=== PATIENT | male | born 1965 | race Caucasian/White ===

== ENCOUNTER 2024-05-18 09:00 | Inpatient (IN) | payer MEDICAID, SELFPAY ==
[2024-05-18] VITALS (49 sets, daily range): BP systolic 149–250; BP diastolic 85–146; PULSE 70–132; RESP 12–23; TEMP 37.2–37.7; O2SAT 77–100
--- NOTE | 2024-05-18 09:00 | RT.EKG_ITS ---
APPROVED REPORT Exam: Resting ECG Reason for Exam: Detox Patient Location: E HR:124 bpm ECG Measurements Heart Rate 124 AXIS MA 136 P 35 QRSd 84 QRS -41 QT 317 T 3 QTc 456 Conclusion Sinus tachycardia...rate> 99 Probable left atrial enlargement...P >50mS, <-0.10mV V1 Inferior infarct, old...Q >35mS, II III aVF Sinus tachycardia left axis normal intervals no acute ischemic changes
--- NOTE | 2024-05-18 09:28 | ED.GENADUL_ITS ---
Discharge Plan Disposition Patient Disposition: Admit to [facility] Condition: Stable Discharge Details Chief Complaint: ETOHWithdr Clinical Impression: Alcohol withdrawal syndrome Primary Care Provider: Unknown,Unknown ED Provider: Cullen Weiss Home Meds and New Rx's Prescriptions: No Action hydrochlorothiazide 12.5 mg capsule 12.5 mg PO DAILY Patient Comments: TAKE 1 CAPSULE BY MOUTH ONCE DAILY metoprolol tartrate 25 mg tablet 12.5 mg PO DAILY Patient Comments: TAKE ONE-HALF TABLET BY MOUTH TWICE DAILY HPI General Date/Time Provider Initiated Documentation: 05/18/24 09:09 . HPI Narrative: 58-year-old male history of alcohol abuse last drink yesterday presents in alcohol withdrawal presenting with tremors and sweating nervousness requesting detox. Brought in by friend Les. Patient endorses a mechanical trip and fall yesterday when he was drinking fell and hit his head no loss of consciousness. Sustained abrasion to right frontal scalp. Endorses history of prior alcohol withdrawal seizures Related Data Home Medications ?Medication ?Instructions ?Recorded ?Confirmed hydrochlorothiazide 12.5 mg capsule 12.5 mg PO DAILY 05/18/24 05/18/24 metoprolol tartrate 25 mg tablet 12.5 mg PO DAILY 05/18/24 05/18/24 Allergies Allergy/AdvReac Type Severity Reaction Status Date / Time No Known Allergies Allergy Unverified 05/18/24 09:08 General Stated Complaint: ETOHWithdr ÁNGELA: 2 Exam Narrative Exam Narrative: Alert oriented uncomfortable appearing Diaphoretic skin Subacute appearing abrasion to frontal scalp, subconjunctival hematoma right eye extraocular motion intact pupils round reactive equal to light, no proptosis Dry oromucosa dry lips Speaking full sentences Tachycardia, regular rate no murmurs rubs or gallops Lungs clear bilaterally no wheezes rales or rhonchi Abdomen soft nontender nondistended Pelvis stable moving all extremities without deficit Alert to self place and time, cranial nerves II through XII intact 5-5 strength upper and lower extremities bilaterally, no ataxia, resting tremor of hands some tongue fasciculation Calm cooperative interactive Course Vital Signs Vital signs: Vital Signs Temperature 37.2 C 05/18/24 09:04 Pulse 129 H 05/18/24 09:04 Respiratory Rate 22 05/18/24 09:04 Blood Pressure 185/146 H 05/18/24 09:04 Pulse Oximetry 95 05/18/24 09:04 Temperature 37.2 C 05/18/24 09:04 Temperature Source Oral 05/18/24 09:04 Pulse 129 H 05/18/24 09:04 Respiratory Rate 22 05/18/24 09:04 Blood Pressure 185/146 H 05/18/24 09:04 Pulse Oximetry 95 05/18/24 09:04 Oxygen Delivery Method Room Air 05/18/24 09:04 Oxygen Flow Rate 0 05/18/24 09:04 Medical Decision Making 58-year-old male presents in alcohol withdrawal last drink yesterday, no to be tachycardic and hypertensive, diaphoretic with dry oromucosa, tremor at rest with tongue fasciculation, CIWA score approximately 15. Subacute appearing abrasion to frontal scalp and subconjunctival hemorrhage of right eye with normal pupillary examination no proptosis normal extraocular motion, cranial nerves intact alert oriented speaking full sentences, likely alcohol withdrawal lower suspicion for intracranial hemorrhage must also consider electrolyte derangement versus dehydration lower suspicion for infectious process such as pneumonia bacteremia UTI or intracranial process such as encephalitis or encephalopathy patient is nonmeningeal, no midline spinal tenderness step-off crepitus or deformity, will obtain basic labs IV access will initiate on phenobarbital protocol ideal body weight calculated at 160 pounds or approximately 72 kg, have initiated institutional protocol corresponding to CIWA 15. Patient will need ICU level admission. Will obtain CT head given recent trauma 11: 34 subjective improvement of symptomatology less anxious less tremulous, however patient does remain tachycardic and hypertensive. Consider increasing phenobarbital dose from recommended ideal body weight dose regimen. Discussed case with hospitalist Dr. Sánchez who will discuss increasing phenobarb dose with pharmacy. I have placed the third phenobarbital loading dose order in which will be administered at 345. Patient will receive his second dose at 1245. Quality:SDOH Health Related Social Needs: No Data to Display PFSH All Active Problems (Updated 05/18/24 @ 11:36 by Cullen Weiss MD) Alcohol withdrawal syndrome (Acute) Social History Smoking/Tobacco Use Status: Current every day Smoking risk assessment performed?: Yes Alcohol Intake: current Alcohol Intake frequency: 3 or more drinks per day Drug use: Never Substance use type: does not use
--- NOTE | 2024-05-18 09:30 | DI.CT_ITS ---
Exam(s) CT HEAD WO EXAM: CT HEAD WO CLINICAL HISTORY: fall from standing, frontal right scalp abrasion. TECHNIQUE: Imaging Protocol: Axial computed tomography images with coronal and sagittal reformatted images were created and reviewed COMPARISON: No exams were available for comparison FINDINGS: There are no skull fractures. There is no fluid in the visualized paranasal sinuses. There is no evidence of intracranial hemorrhage, mass effect, or shift of midline structures. There are no extra-axial fluid collections. The ventricles are not enlarged or shifted and there is no blo od within the ventricular system nor within the basal cisterns. IMPRESSION: No acute intracranial findings on this noninfused CT scan of the brain. Called by myself to ER on 05/18/2024 at 10:24 a.m. RADIATION DOSE DELIVERED: 939.7mGy.cm Total DLP DATA REPOSITORY: All CT scans at this facility are submitted to the National Radiology Data Registry (NRDR) Dose Index Registry (DIR) with the [employer] (A[employer]). RADIATION OPTIMIZATION: All CT scans at this facility use at least one of these dose optimization te chniques: automated exposure control; mA and/or kV adjustment per patient size (includes targeted exa ms where dose is matched to clinical indication); or iterative reconstruction.
[2024-05-18] MEDS: Normal Saline 1,000 ML 1000 ML IV (09:45)
[2024-05-18 09:46] LABS: Abs Immature Grans 0.05 10^3/uL (0.0-0.06); Absolute Basophil Count 0.07 10^3/uL (0.0-0.2); Absolute Lymphocyte Count 0.64 10^3/uL (1.2-3.4); Absolute Monocyte Count 0.74 10^3/uL (0.1-0.8); Absolute Neutrophil Count 6.17 10^3/uL (1.2-6.7); Basophils % 0.9 %; HCT 43.5 % (40.0-50.0); HGB 14.8 g/dL (13.5-17.5); Immature Grans % 0.7 %; Lymphocytes % 8.3 %; MCV 94 fL (80-95); MPV 9.6 fL (8.0-11.0); Monocytes % 9.6 %; Neutrophils % 80.5 %; Platelet Count 137 10^3/uL (130-400); RBC 4.62 10^6/uL (4.36-5.78); RDW 15.8 % (11.8-14.1); RDW-SD 54.3 fL; WBC 7.67 10^3/uL (4.4-10.8)
[2024-05-18 10:17] LABS: TSH (W/Ref FT4) 3.42 uIU/mL (0.36-3.74)
[2024-05-18 10:23] LABS: ALT 56 U/L (16-63); AST 102 U/L (15-37); Albumin 3.6 g/dL (3.4-5.0); Alkaline Phosphatase 85 U/L (46-116); Anion Gap 21.8 mmol/L (3-11); BUN 24 mg/dL (7-18); Bilirubin, Total 0.66 mg/dL (0.2-1.0); CO2 20.2 mmol/L (21.0-32.0); CREATININE 1.4 mg/dL (0.70-1.30); Calcium 8.8 mg/dL (8.5-10.1); Chloride 102 mmol/L (98-107); ETHANOL BLOOD 16.6 mg/dL (<10); Estimated GFR 58.99 (mL/min/1.73m2); Glucose 166 mg/dL (74-106); Lipase 52 U/L (16-77); Magnesium 1.6 mg/dL (1.8-2.4); Sodium 144 mmol/L (136-145)
[2024-05-18] MEDS: MAGNESIUM SULFATE 8.12 MEQ, MULTIVITAMIN 10 ML, THIAMINE 100 MG, FOLIC ACID 1 MG in Nor... 168.867 MG IV (10:33)
[2024-05-18 10:48] LABS: Folate 4.4 ng/mL (8.6-20.0)
[2024-05-18 11:11] LABS: Bilirubin Small (Negative); Blood Moderate (Negative); Clarity Clear (Clear); Glucose Negative (Negative); Ketones 80 mg/dL (Negative); Leukocyte Esterase Negative (Negative); Nitrite Negative (Negative); Specific Gravity 1.025 (1.005-1.025); Urobilinogen 0.2 mg/dL (Up to 0.2)
[2024-05-18 11:17] LABS: Bacteria Few HPF (Negative); C & S Indicated? No; Casts 3-5 Hyaline LPF (Negative); Crystals Negative HPF (Negative); Epithelial Cells Rare HPF (Negative); Mucus Moderate (Negative); WBC 0-2 HPF (0-5)
[2024-05-18 11:27] LABS: *AMPHETAMINES SCREEN URINE Negative (Negative); *BARBITURATES SCREEN URINE Positive (Negative); *BENZODIAZEPINES SCREEN URINE Negative (Negative); Cannabinoids THC Negative (Negative); Cocaine Screen,Urine Negative (Negative); METHADONE URINE SCREEN Negative (Negative); OPIATES URINE SCREEN Negative (Negative)
--- NOTE | 2024-05-18 11:28 | W.PM.HP.N ---
Date of service: 05/18/24 Time of Service: 11:38 Assessment and Plan Assessment and plan (1) Alcohol withdrawal syndrome: Status: Acute Assessment and plan: - As noted in HPI, patient has a history of alcohol use disorder, previous history of alcohol withdrawal with withdrawal seizures, and presented the emergency department and alcohol withdrawal -Last drink was on the evening of 05/17/2024 -Initial CIWA score in the emergency department was in the high teens -Status post 3X phenobarbital loading dose in the emergency department based on ideal body weight -Will be admitted to the ICU given severity of withdrawal and history of withdrawal seizures -Will continue IV phenobarbital protocol at this time and give additional as needed doses as needed (2) HTN (hypertension): Status: Chronic Assessment and plan: -Continue home metoprolol and hydrochlorothiazide History of Present Illness History of Present Illness Chief Complaint: EtOH withdrawal Narrative: 58-year-old gentleman with a past medical history of hypertension and alcohol use disorder who presents emergency department and withdrawal. Patient states that he has significant history of alcohol abuse and that he consumed his last drink yesterday and came in today with tremors sweating nervousness and requesting detox. Patient does have a history of withdrawal and withdrawal seizures. He was brought in by his friend who also endorsed patient had a mechanical fall yesterday where he fell and hit his head but did not lose consciousness. Patient denies any headache, lightheadedness, dizziness, chest pain, shortness of breath, nausea or vomiting or diarrhea. In the emergency department the patient was noted as having tachycardia with heart rate in the 120s, elevated blood pressure of 185/146 and appeared to be in alcohol withdrawal with a supporting CIWA score in the high teens. Head CT was checked given report of falling and hitting his head however did not show any acute findings. CBC was unremarkable, CMP did show magnesium of 1.6, and a creatinine of 1.4 though we do not have a baseline creatinine for the patient to know if this is acute or chronic. While in the emergency department he was given 3 doses of IV phenobarbital based on phenobarbital loading protocol and patient's ideal weight. Which the emergency room physician paged hospitalist for admission for patient with alcohol withdrawal. Review of Systems All systems reviewed & are unremarkable except as noted in HPI and below PFSH All Active Problems (Updated 05/18/24 @ 11:41 by Colby Sánchez MD) HTN (hypertension) (Chronic) Alcohol withdrawal syndrome (Acute) Social History Smoking/Tobacco Use Status: Current every day Smoking risk assessment performed?: Yes Alcohol Intake: current Alcohol Intake frequency: 3 or more drinks per day Drug use: Never Substance use type: does not use Meds Allergies and Home Medications Allergies Allergy/AdvReac Type Severity Reaction Status Date / Time No Known Allergies Allergy Unverified 05/18/24 09:08 Home Medications ?Medication ?Instructions ?Recorded ?Confirmed ?Type budesonide-formoterol HFA 160 inhalation 05/18/24 History mcg-4.5 mcg/actuation aerosol inhaler (Breyna) hydrochlorothiazide 12.5 mg capsule 12.5 mg PO DAILY 05/18/24 05/18/24 History metoprolol tartrate 25 mg tablet 12.5 mg PO DAILY 05/18/24 05/18/24 History rosuvastatin 20 mg tablet 20 mg PO ONCE 05/18/24 05/18/24 History valsartan 40 mg tablet 40 mg PO DAILY 05/18/24 05/18/24 History Exam Narrative Exam Narrative: Fatigued appearing gentleman laying in bed in no acute distress, ANO x 4, heart regular rhythm, lungs clear to auscultation bilaterally, abdomen soft, nontender, nondistended Results Labs 05/18/24 09:24 05/18/24 09:24 Labs: Laboratory Results - last 24 hr 05/18/24 05/18/24 05/18/24 09:20 09:24 11:05 WBC Cancelled 7.67 RBC Cancelled 4.62 Hgb Cancelled 14.8 Hct Cancelled 43.5 MCV Cancelled 94 MCH Cancelled 32.0 MCHC Cancelled 34.0 RDW Cancelled 15.8 H Plt Count Cancelled 137 MPV Cancelled 9.6 Immature Gran % Cancelled 0.7 Neutrophils % Cancelled 80.5 Band Neutrophils % Cancelled Lymphocytes % Cancelled 8.3 Atypical Lymphs % Cancelled Monocytes % Cancelled 9.6 Eosinophils % Cancelled 0.0 Basophils % Cancelled 0.9 Metamyelocytes % Cancelled Myelocytes % Cancelled Promyelocytes % Cancelled Other Cells % Cancelled Nucleated RBC % Cancelled 0.0 Absolute Neutrophils Cancelled 6.17 Absolute Lymphocytes Cancelled 0.64 L Absolute Monocytes Cancelled 0.74 Absolute Eosinophils Cancelled 0.00 Absolute Basophils Cancelled 0.07 RBC Morphology Cancelled Polychromasia Cancelled Hypochromasia Cancelled Poikilocytosis Cancelled Basophilic Stippling Cancelled Anisocytosis Cancelled Microcytosis Cancelled Macrocytosis Cancelled Spherocytes Cancelled Tear Drop Cells Cancelled Ovalocytes Cancelled Stomatocytes Cancelled Hanson-Brunson Bodies Cancelled [place] Cells/Echinocytes Cancelled Acanthocytes (Spur) Cancelled Schistocytes Cancelled Sodium 144 Potassium 4.0 Chloride 102 Carbon Dioxide 20.2 L Anion Gap 21.8 H BUN 24 H Creatinine 1.4 H Est GFR (CKD-EPI 2020) 58.99 Glucose 166 H Calcium 8.8 Magnesium 1.6 L Total Bilirubin 0.66 AST 102 H ALT 56 Alkaline Phosphatase 85 Total Protein 8.0 Albumin 3.6 Lipase 52 Folate 4.4 L TSH 3.42 Urine Color Yellow Urine Clarity Clear Urine pH 6.0 Ur Specific [place] 1.025 Urine Protein 100 H Urine Ketones 80 H Urine Blood Moderate H Urine Nitrite Negative Urine Bilirubin Small H Urine Urobilinogen 0.2 Ur Leukocyte Esterase Negative Urine RBC 10-20 H Urine WBC 0-2 Ur Epithelial Cells Rare Urine Crystals Negative Urine Bacteria Few Urine Casts 3-5 Hyaline Urine Mucus Moderate Ur Culture Indicated? No Urine Glucose Negative Ethyl Alcohol 16.6 H Last Vital Signs Temp 99.0 F 05/18/24 09:04 Pulse 129 H 05/18/24 09:04 Resp 22 05/18/24 09:04 BP 185/146 H 05/18/24 09:04 Pulse Ox 95 05/18/24 09:04 PAWSS Have you Been Recently Intoxicated or Drunk Within the Last 30 days?: Yes Have you Ever Experienced Previous Episodes of Alcohol Withdrawal?: Yes Have you ever Experienced Withdrawal Seizures?: No Have you ever Experienced Delirium Tremens(DT)s?: Yes Have you ever undergone Alcohol Rehabilitation Treatment (i.e, inpt ot outpatient treatment programs)?: Yes Have you ever Experienced Blackouts?: Yes Have you ever Combined Alcohol with other Downers within the last 90 days?: No Have you ever Combined Alcohol with any other Substance of Abuse during the last 90 days?: No Evidence of Increased Autonomic Activity (i.e. HR>120, tremor, sweating, agitation, nausea)?: Yes Result: 6 Time Spent Time spent with Patient: >75 minutes Time was spent: preparing to see the patient(eg.review tests), obtaining and/or reviewing separately otained hiistory, ordering medications,tests, procedures, referring, communicating with other health acute care nursing assistant, indepentently interpreting results, counseling the patient and care coordination
[2024-05-18 11:29] LABS: Tricyclic Antidepressants Negative (Negative)
[2024-05-18] MEDS: PHENOBARBITAL IVPB ×2 (12:40→16:26)
[2024-05-18] MEDS: NORMAL SALINE IVPB ×2 (12:40→16:26)
[2024-05-18] MEDS: hydroCHLOROthiazide 12.5 MG TAB PO (13:51)
[2024-05-18] MEDS: Metoprolol 12.5 MG TAB PO ×2 (13:51→20:02)
--- NOTE | 2024-05-18 14:00 | W.PC.ACHO ---
Registration Status: Primary Language: Preferred Language: ED Information & Data Chief Complaint ETOHWithdr 05/18/24 10:01 Chief Complaint ETOHWithdr 05/18/24 09:31 Triage Note tremors, sweating, nervous, 05/18/24 09:04 wants to detox from ETOH yesterday 1800 last alcohol drink Most Recent Vital Signs Temperature 37.7 C H 05/18/24 13:30 Temperature Source Temporal Artery Scan 05/18/24 13:30 Pulse 107 H 05/18/24 13:30 Pulse 114 H 05/18/24 12:31 Respiratory Rate 18 05/18/24 13:30 Respiratory Effort Normal 05/18/24 13:30 Respiratory Depth Normal 05/18/24 13:30 Respiratory Pattern Normal 05/18/24 13:30 Blood Pressure 207/123 H 05/18/24 13:30 Blood Pressure Mean 151 05/18/24 13:30 Blood Pressure Position Supine 05/18/24 13:30 Pulse Oximetry 94 05/18/24 13:30 Oxygen Delivery Method Room Air 05/18/24 13:30 Oxygen Flow Rate 0 05/18/24 13:30 Pain Level 0 05/18/24 13:30 Allergies No Known Allergies Allergy (Unverified 05/18/24 09:08) Precautions Isolation Standard precaution 05/18/24 10:01 Active Medications Generic Name Dose Route Start Last Admin Trade Name Devendra PRN Reason Stop Dose Admin Magnesium Sulfate 8.12 meq/ 1,013.2 mls @ 168.867 mls/hr 05/18/24 09:16 05/18/24 10:33 Multivitamins 10 ml/ Thiamine IV 05/18/24 15:15 168.867 mls/hr HCl 100 mg/ Folic Acid 1 mg/ INFUSION ONE Administration Sodium Chloride IV IV Catheter Type [Left Forearm Saline Lock ] IV Catheter Type [Right Saline Lock Antecubital] IV Catheter Gauge [Left 18 Forearm] IV Catheter Gauge [Right 18 Antecubital] Diet Orders Category Date Time Status Regular/Normal [DIET] Nutrition 05/18/24 Lunch Active Diagnostics 05/18/24 05/18/24 05/18/24 Range/Units 11:05 09: 09:20 WBC 7.67 Cancelled RBC 4.62 Cancelled Hgb 14.8 Cancelled Hct 43.5 Cancelled MCV 94 Cancelled MCH 32.0 Cancelled MCHC 34.0 Cancelled RDW 15.8 H Cancelled Plt Count 137 Cancelled MPV 9.6 Cancelled Immature Gran % 0.7 Cancelled Neutrophils % 80.5 Cancelled Band Neutrophils % Cancelled Lymphocytes % 8.3 Cancelled Atypical Lymphs % Cancelled Monocytes % 9.6 Cancelled Eosinophils % 0.0 Cancelled Basophils % 0.9 Cancelled Metamyelocytes % Cancelled Myelocytes % Cancelled Promyelocytes % Cancelled Other Cells % Cancelled Nucleated RBC % 0.0 Cancelled Absolute Neutrophils 6.17 Cancelled Absolute Lymphocytes 0.64 L Cancelled Absolute Monocytes 0.74 Cancelled Absolute Eosinophils 0.00 Cancelled Absolute Basophils 0.07 Cancelled RBC Morphology Cancelled Polychromasia Cancelled Hypochromasia Cancelled Poikilocytosis Cancelled Basophilic Stippling Cancelled Anisocytosis Cancelled Microcytosis Cancelled Macrocytosis Cancelled Spherocytes Cancelled Tear Drop Cells Cancelled Ovalocytes Cancelled Stomatocytes Cancelled Hanson-Mil[place] Bodies Cancelled [place] Cells/Echinocytes Cancelled Acanthocytes (Spur) Cancelled Schistocytes Cancelled Sodium 144 (136-145) mmol/L Potassium 4.0 (3.5-5.1) mmol/L Chloride 102 (98-107) mmol/L Carbon Dioxide 20.2 L (21.0-32.0) mmol/L Anion Gap 21.8 H (3-11) mmol/L BUN 24 H (7-18) mg/dL Creatinine 1.4 H (0.70-1.30) mg/dL Est GFR (CKD-EPI 2020) 58.99 (mL/min/1.73m2) Glucose 166 H (74-106) mg/dL Calcium 8.8 (8.5-10.1) mg/dL Magnesium 1.6 L (1.8-2.4) mg/dL Total Bilirubin 0.66 (0.2-1.0) mg/dL AST 102 H (15-37) U/L ALT 56 (16-63) U/L Alkaline Phosphatase 85 (46-116) U/L Total Protein 8.0 (6.4-8.2) g/dL Albumin 3.6 (3.4-5.0) g/dL Lipase 52 (16-77) U/L Folate 4.4 L (8.6-20.0) ng/mL TSH 3.42 (0.36-3.74) uIU/mL Urine Color Yellow (Yellow) Urine Clarity Clear (Clear) Urine pH 6.0 (5-8) Ur Specific [place] 1.025 (1.005-1.025) Urine Protein 100 H (Neg-Trace) mg/dL Urine Ketones 80 H (Negative) mg/dL Urine Blood Moderate H (Negative) Urine Nitrite Negative (Negative) Urine Bilirubin Small H (Negative) Urine Urobilinogen 0.2 (Up to 0.2) mg/dL Ur Leukocyte Esterase Negative (Negative) Urine RBC 10-20 H (0-2) HPF Urine WBC 0-2 (0-5) HPF Ur Epithelial Cells Rare (Negative) HPF Urine Crystals Negative (Negative) HPF Urine Bacteria Few (Negative) HPF Urine Casts 3-5 Hyaline (Negative) LPF Urine Mucus Moderate (Negative) Ur Culture Indicated? No Urine Glucose Negative (Negative) mg/dL Urine Opiates Screen Negative (Negative) Urine Methadone Screen Negative (Negative) Ur Barbiturates Screen Positive A (Negative) Ur Tricyclics Screen Negative (Negative) Ur Amphetamines Screen Negative (Negative) U Benzodiazepines Scrn Negative (Negative) Urine Cocaine Screen Negative (Negative) Ur THC Screen Negative (Negative) Ethyl Alcohol 16.6 H (<10) mg/dL Intake and Output - 24 Hour Total 05/18/24 09:00 thru 05/18/24 13:30 Intake Total 1072.2308 Balance 1072.2308 Weight 108 kg Intake: IV 1072.2308 Falls Risk Assessment History of Falls Previous History 05/18/24 10:01 Contributing Factors Impairments 05/18/24 10:01 Ambulatory Aids Uses ambulatory device + 05/18/24 10:01 Tubes/Lines With any additional score 05/18/24 10:01 Gait Evaluation W/any additional score 05/18/24 10:01 Cognition No cognitive impairment 05/18/24 10:01 Fall Total Score 88 05/18/24 10:01 Level of Risk Maximum Risk 05/18/24 10:01 Problems HTN (hypertension) (Chronic) Alcohol withdrawal syndrome (Acute) v v v v v v v v v Sending and/or Receiving Nurses: Please use comment section below to note any information pertinent to the patient hand-off not included above. Information / Comments: All questions answered. Report received from: Nivia Roque RN
--- NOTE | 2024-05-18 14:30 | PHA.REVIEW2 ---
Pharmacy Admission Review Admission Clinical Review Admission Pharmacy Review: Alcohol withdrawal syndrome (Acute) No Known Allergies Allergy (Unverified 05/18/24 09:08) Resuscitation Status Full Code Height 5 ft 10 in Weight 108 kg Pharmacy Admission Review Renal Dosing Renal Dosing: BUN 24 mg/dL (7-18) H 05/18/24 09:24 Creatinine 1.4 mg/dL (0.70-1.30) H 05/18/24 09:24 Medications needing adjustments: Reviewed (CrCl 72.5 mL/min) List of meds needing interventions: Current medications are okay Anticoagulation Anticoagulation: Hgb 14.8 g/dL (13.5-17.5) 05/18/24 09:24 Hct 43.5 % (40.0-50.0) 05/18/24 09:24 Plt Count 137 10^3/uL (130-400) 05/18/24 09:24 Creatinine 1.4 mg/dL (0.70-1.30) H 05/18/24 09:24 DVT Prophylaxis: Reviewed Medications: Enoxaparin (40mg daily) Relevant Labs Relevant Labs: Sodium 144 mmol/L (136-145) 05/18/24 09:24 Potassium 4.0 mmol/L (3.5-5.1) 05/18/24 09:24 Chloride 102 mmol/L (98-107) 05/18/24 09:24 Magnesium 1.6 mg/dL (1.8-2.4) L 05/18/24 09:24 Electrolytes, C-Reactive P, ESR: Reviewed (Mg 1.6 - has banana bag running) Cardiac Review Cardiac Review: Blood Pressure : Heart Rate 207/123 : 107 1330 Blood Pressure : Heart Rate 222/110 : 111 1231 Blood Pressure : Heart Rate 233/127 : 115 1216 Blood Pressure : Heart Rate 229/119 : 115 1201 Blood Pressure : Heart Rate 236/122 : 119 1145 Blood Pressure : Heart Rate 215/125 : 115 1130 Blood Pressure : Heart Rate 213/111 : 112 1116 Blood Pressure : Heart Rate 231/112 : 116 1107 Blood Pressure : Heart Rate 250/135 : 124 1104 Blood Pressure : Heart Rate 235/124 : 122 1001 Blood Pressure : Heart Rate 229/120 : 120 0951 Blood Pressure : Heart Rate 204/128 : 127 0915 Blood Pressure : Heart Rate 185/146 : 132 0906 Blood Pressure : Heart Rate 185/146 : 129 0904 BP, HR, EF%: Reviewed (temp of 37.7 at 1330) List meds needing interventions: Has order for HCTZ 12.5mg daily and metoprolol 12.5mg PO BID - given a now dose of both today at 1351 due to missed morning dose. QTc Review QTc: Reviewed (EKG report pending) IV to PO Switch IV Medications: Reviewed (phenobarbital) Home Meds Home Med List reviewed: Reviewed Relevent Home Meds Not ordered & why?: Breyna (has not filled since 03/02 for 30 day supply), rosuvastatin and valsartan Reached out to provider regarding rosuvastatin and valsartan. Waiting to hear back. Current Meds Current Medication Order Review: Intervened Comments: Added IV admission order set Changed metoprolol order from daily to BID to match home med list Phenobarbital for alcohol withdrawal IBW 73mg , loading dose of 10mg/kg Soft: 1095 mg Hard: 1460 mg So far has received 2 of 3 loading doses (total of 506mg). 3rd loading dose is scheduled for 1545. CIWA: 16 at 1001, 6 at 1139 and 11 at 1242
[2024-05-18] MEDS: Nicotine 21 MG/24 HR PATCH TD (16:18)
[2024-05-18] MEDS: Normal Saline Flush 10 ML SYR IVP (20:02)
[2024-05-18] MEDS: Acetaminophen 325 MG TAB PO (23:58)
[2024-05-19] VITALS (30 sets, daily range): BP systolic 140–184; BP diastolic 80–133; PULSE 68–112; RESP 10–32; TEMP 36.1–37.2; O2SAT 92–99
[2024-05-19] MEDS: PHENobarbital 130 MG/ML VIAL IVP (02:48)
[2024-05-19] MEDS: Enoxaparin 40 MG/0.4 ML SYR SC (08:30)
[2024-05-19] MEDS: Metoprolol 12.5 MG TAB PO ×2 (08:30→19:54)
[2024-05-19] MEDS: hydroCHLOROthiazide 12.5 MG TAB PO (08:30)
[2024-05-19] MEDS: Nicotine 21 MG/24 HR PATCH TD (08:30)
--- NOTE | 2024-05-19 09:10 | INITIAL_ITS ---
Date of service: 05/19/24 Time of Service: 09:10 Care Management Initial Assmt Initial Assessment Reason for Hospitalization: ETOH Withdrawal Functional Status/Living Situation Patient Presentation: Neel was sitting up in bed when CM met with him. He met with Kingdom Hassan in the ER and personally reached out to [facility] [facility] (sober housing) program and was accepted into the program. He will be meeting with the server programmer tomorrow. Neel advises CM that he does not have secure housing and has been staying at a local motel in [facility] and has been in self-pay since his housing voucher ran out. Before coming to [facility], Neel was living in the [facility]. Town of Residence: [facility] Resides with: Alone Significant Other/Family: Out of area Natural Supports: Friend Les Employment Status: Disabled (SSDI ) Instrumental Activities of Daily Living (ADLs): Independent Activities/Hobbies/SocialSupport: Uses a motorized bike for transportation, does not have a car Medications Medication Management: No Issues/Barriers identified Physical Functioning/Mobility Assistive Device: None Advance Directives Advance Directives: Do you have an Advance Directive: N 05/18/24 09:08 AD On File at [facility]: N 05/18/24 09:08 Date Asked 05/18/24 05/18/24 09:08 AD Date Reviewed COLST On File at [facility] COLST Date Scanned Code Status Resuscitation Status Full Code Portal Pt does not currently have a portal and education provided: Yes Insurance Coverage/Financial Issues Insurance: Medicaid Financial Issues: Receives SSDI and Food benefits and has a section 8 voucher. Care Team Visit Care Team Role Provider Type CURTIS Olvera Primary Care Provider NON-[facility] STAFF PHYSICIAN Cullen Weiss MD Emergency Provider [facility] STAFF PHYSICIAN Colby Sánchez MD Admit Provider [facility] STAFF PHYSICIAN Attending Provider Discharge Potential Discharge Needs: PCP F/U Appt (T-Doc Follow up) Anticipated Barriers to Discharge: Medical Status Patient/Family Education Needs: Review discharge instructions, discuss Ask Me Three Transportation: RCT (RCT private car) Plan: Anticipate, pt will discharge to [facility] when medically ready for discharge. T-Doc follow up will be needed. No local PCP, Primary Care list is given to patient. Neel has several community needs and is agreeable to a [facility] referral. CM will continue to support PFSH All Active Problems (Updated 05/18/24 @ 11:41 by Colby Sánchez MD) HTN (hypertension) (Chronic) Alcohol withdrawal syndrome (Acute) Social History Smoking/Tobacco Use Status: Current every day Smoking risk assessment performed?: Yes Alcohol Intake: current Alcohol Intake frequency: 3 or more drinks per day Drug use: Never Substance use type: does not use SDOH(Care Management) Screening Will the Patient Participate in the Screening?: Declined to provide Interventions Care Management Referrals: [facility] (Support with community needs)
[2024-05-19 09:11] LABS: Abs Immature Grans 0.04 10^3/uL (0.0-0.06); Absolute Basophil Count 0.05 10^3/uL (0.0-0.2); Absolute Eosinophil Count 0.03 10^3/uL (0.0-0.7); Absolute Lymphocyte Count 1.11 10^3/uL (1.2-3.4); Absolute Monocyte Count 0.88 10^3/uL (0.1-0.8); Absolute Neutrophil Count 4.48 10^3/uL (1.2-6.7); Basophils % 0.8 %; Eosinophils % 0.5 %; HCT 42.4 % (40.0-50.0); HGB 14.3 g/dL (13.5-17.5); Immature Grans % 0.6 %; Lymphocytes % 16.8 %; MCH 31.7 pg (27.0-33.0); MCHC 33.7 % (32.0-36.0); MCV 94 fL (80-95); MPV 10.1 fL (8.0-11.0); Monocytes % 13.4 %; Neutrophils % 67.9 %; Platelet Count 112 10^3/uL (130-400); RBC 4.51 10^6/uL (4.36-5.78); RDW 15.4 % (11.8-14.1); RDW-SD 53.5 fL; WBC 6.59 10^3/uL (4.4-10.8)
[2024-05-19] MEDS: Budesonide/Formoterol 160/4.5 6 GM 60 PUFF INH IH ×2 (10:01→19:56)
--- NOTE | 2024-05-19 10:47 | PGE_ITS ---
Date of Service Date of service: 05/19/24 Time of Service: 10:47 Assessment and Plan Assessment and plan (1) Alcohol withdrawal syndrome: Status: Acute Assessment and plan: - As noted in HPI, patient has a history of alcohol use disorder, previous history of alcohol withdrawal with withdrawal seizures, and presented the emergency department and alcohol withdrawal -Last drink was on the evening of 05/17/2024 -Initial CIWA score in the emergency department was in the high teens -Status post 3X phenobarbital loading dose in the emergency department based on ideal body weight -Will be admitted to the ICU given severity of withdrawal and history of withdrawal seizures -much improved, will be transferred to [facility], -Will continue IV phenobarbital protocol at this time and give additional as needed doses as needed (2) HTN (hypertension): Status: Chronic Assessment and plan: -Continue home metoprolol and hydrochlorothiazide -Patient remains somewhat hypertensive though this may be secondary to alcohol withdrawal -Will continue to monitor blood pressures and would likely increase HCTZ if needed Subjective Subjective Interval history since last seen: Patient states that he is feeling significantly better as compared to admission and that his tremors are much improved. Otherwise he has no complaints or concerns at this time. Exam Narrative Exam Narrative: Well-appearing gentleman sitting up in the chair no acute distress, very mildly tremulous though significantly improved as compared to admission, ANO x 4, heart regular rhythm, lungs clear to auscultation bilaterally, abdomen soft, nontender, nondistended Objective Last Vital Signs Temp 99.1 F 05/18/24 20:31 Pulse 71 05/18/24 21:01 Resp 12 05/18/24 21:01 BP 166/89 H 05/18/24 21:01 Pulse Ox 94 05/18/24 21:01 Laboratory Results - last 24 hr 05/18/24 05/18/24 09:24 11:05 Folate 4.4 L Urine Color Yellow Urine Clarity Clear Urine pH 6.0 Ur Specific Cocoa 1.025 Urine Protein 100 H Urine Ketones 80 H Urine Blood Moderate H Urine Nitrite Negative Urine Bilirubin Small H Urine Urobilinogen 0.2 Ur Leukocyte Esterase Negative Urine RBC 10-20 H Urine WBC 0-2 Ur Epithelial Cells Rare Urine Crystals Negative Urine Bacteria Few Urine Casts 3-5 Hyaline Urine Mucus Moderate Ur Culture Indicated? No Urine Glucose Negative Urine Opiates Screen Negative Urine Methadone Screen Negative Ur Barbiturates Screen Positive A Ur Tricyclics Screen Negative Ur Amphetamines Screen Negative U Benzodiazepines Scrn Negative Urine Cocaine Screen Negative Ur THC Screen Negative PAWSS Have you Been Recently Intoxicated or Drunk Within the Last 30 days?: Yes Have you Ever Experienced Previous Episodes of Alcohol Withdrawal?: Yes Have you ever Experienced Withdrawal Seizures?: No Have you ever Experienced Delirium Tremens(DT)s?: Yes Have you [facility]: Yes Have you ever Experienced Blackouts?: Yes Have you ever Combined Alcohol with other Downers within the last 90 days?: No Have you ever Combined Alcohol with any other Substance of Abuse during the last 90 days?: No Evidence of Increased Autonomic Activity (i.e. HR>120, tremor, sweating, agitation, nausea)?: Yes Result: 6 Time Spent with Patient Time Spent with Patient: >50 minutes Time was spent: preparing to see the patient(eg.review tests), obtaining and/or reviewing separately otained hiistory, ordering medications,tests, procedures, referring, communicating with other health prompt care rn, indepentently interpreting results, counseling the patient and care coordination
[2024-05-19 11:10] LABS: ALT 49 U/L (16-63); AST 92 U/L (15-37); Albumin 3.2 g/dL (3.4-5.0); Alkaline Phosphatase 71 U/L (46-116); BUN 17 mg/dL (7-18); Bilirubin, Total 1.28 mg/dL (0.2-1.0); Calcium 8.6 mg/dL (8.5-10.1); Chloride 101 mmol/L (98-107); Estimated GFR 88.33 (mL/min/1.73m2); Glucose 103 mg/dL (74-106); Potassium 3.3 mmol/L (3.5-5.1); Sodium 138 mmol/L (136-145); Total Protein 7.2 g/dL (6.4-8.2)
[2024-05-19] MEDS: Valsartan 40 MG TAB PO ×2 (11:53→21:33)
--- NOTE | 2024-05-19 12:49 | W.PC.ACHO ---
Registration Status: Primary Language: Preferred Language: ED Information & Data Chief Complaint ETOHWithdr 05/18/24 10:01 Chief Complaint ETOHWithdr 05/18/24 09:31 Triage Note tremors, sweating, nervous, 05/18/24 09:04 wants to detox from ETOH yesterday 1800 last alcohol drink Most Recent Vital Signs Temperature 36.1 C L 05/19/24 12:43 Temperature Source Temporal Artery Scan 05/19/24 12:43 Pulse 99 H 05/19/24 12:43 Pulse 89 05/19/24 11:30 Respiratory Rate 18 05/19/24 12:43 Respiratory Effort Normal 05/18/24 13:30 Respiratory Depth Normal 05/18/24 13:30 Respiratory Pattern Normal 05/18/24 13:30 Blood Pressure 153/106 H 05/19/24 12:43 Blood Pressure Mean 132 05/19/24 12:02 Blood Pressure Position Supine 05/18/24 13:30 Pulse Oximetry 95 05/19/24 12:43 Oxygen Delivery Method Room Air 05/19/24 12:43 Oxygen Flow Rate 0 05/19/24 12:43 Pain Level 7 05/18/24 23:58 Allergies No Known Allergies Allergy (Unverified 05/18/24 09:08) Precautions Isolation Standard precaution 05/18/24 10:01 Active Medications Generic Name Dose Route Start Last Admin Trade Name Freq PRN Reason Stop Dose Admin Acetaminophen 0 mg 05/18/24 13:23 05/18/24 23:58 Acetaminophen 325 Mg Tab PO 650 mg Q4H PRN PRN Administration Budesonide/Formoterol Fumarate 2 puff 05/19/24 08:30 05/19/24 10:01 Budesonide/Formoterol 160/4.5 6 Gm 60 Puff Inh IH 2 puffs BID SHANICE Administration Enoxaparin Sodium 40 mg 05/19/24 08:30 05/19/24 08:30 Enoxaparin 40 Mg/0.4 Ml Syr SC 40 mg DAILY SHANICE Administration Hydrochlorothiazide 12.5 mg 05/19/24 08:30 05/19/24 08:30 Hydrochlorothiazide 12.5 Mg Tab PO 12.5 mg QAM SHANICE Administration Metoprolol Tartrate 12.5 mg 05/18/24 20:00 05/19/24 08:30 Metoprolol 12.5 Mg Tab PO 12.5 mg BID SHANICE Administration Nicotine 21 mg 05/18/24 15:35 05/19/24 08:30 Nicotine 21 Mg/24 Hr Patch TD 21 mg DAILY SHANICE Administration Phenobarbital Sodium 130 mg 05/18/24 13:23 05/19/24 02:48 Phenobarbital 130 Mg/Ml Vial IVP 130 mg DIRECTED PRN Administration for mild anxiety/agitation Sodium Chloride 0 ml 05/18/24 13:45 05/18/24 20:02 Normal Saline Flush 10 Ml Syr IVP 20 ml PRN PRN Administration Valsartan 40 mg 05/19/24 11:30 05/19/24 11:53 Valsartan 40 Mg Tab PO 40 mg DAILY SHANICE Administration IV IV Catheter Type [Left Forearm Saline Lock ] IV Catheter Type [Right Saline Lock Antecubital] IV Catheter Gauge [Left 18 Forearm] IV Catheter Gauge [Right 18 Antecubital] Diagnostics 05/19/24 Range/Units 05:55 WBC 6.59 (4.4-10.8) 10^3/uL RBC 4.51 (4.36-5.78) 10^6/uL Hgb 14.3 (13.5-17.5) g/dL Hct 42.4 (40.0-50.0) % MCV 94 (80-95) fL MCH 31.7 (27.0-33.0) pg MCHC 33.7 (32.0-36.0) % RDW 15.4 H (11.8-14.1) % Plt Count 112 L (130-400) 10^3/uL MPV 10.1 (8.0-11.0) fL Immature Gran % 0.6 % Neutrophils % 67.9 % Lymphocytes % 16.8 % Monocytes % 13.4 % Eosinophils % 0.5 % Basophils % 0.8 % Nucleated RBC % 0.0 (0.0-0.3) % Absolute Neutrophils 4.48 (1.2-6.7) 10^3/uL Absolute Lymphocytes 1.11 L (1.2-3.4) 10^3/uL Absolute Monocytes 0.88 H (0.1-0.8) 10^3/uL Absolute Eosinophils 0.03 (0.0-0.7) 10^3/uL Absolute Basophils 0.05 (0.0-0.2) 10^3/uL Sodium 138 (136-145) mmol/L Potassium 3.3 L (3.5-5.1) mmol/L Chloride 101 (98-107) mmol/L Carbon Dioxide 25.0 (21.0-32.0) mmol/L Anion Gap 12.0 H (3-11) mmol/L BUN 17 (7-18) mg/dL Creatinine 1.0 (0.70-1.30) mg/dL Est GFR (CKD-EPI 2020) 88.33 (mL/min/1.73m2) Glucose 103 (74-106) mg/dL Calcium 8.6 (8.5-10.1) mg/dL Total Bilirubin 1.28 H (0.2-1.0) mg/dL AST 92 H (15-37) U/L ALT 49 (16-63) U/L Alkaline Phosphatase 71 (46-116) U/L Total Protein 7.2 (6.4-8.2) g/dL Albumin 3.2 L (3.4-5.0) g/dL Intake and Output - 24 Hour Total 05/18/24 09:00 thru 05/19/24 09:21 Intake Total 2558.7538 Output Total 1300 Balance 1258.7538 Weight 108 kg Intake: IV 2198.7538 Oral 360 Output: Urine 1300 Other: Urine Color Yellow Urine Appearance Clear Urine Odor Normal Comment urine mixed with stool and not measured Stool Size Small Stool Characteristics Soft Formed Voiding Methods Urinal Falls Risk Assessment History of Falls No History 05/18/24 13:30 Contributing Factors Impairments 05/18/24 13:30 Ambulatory Aids Independent 05/18/24 13:30 Tubes/Lines With any additional score 05/18/24 13:30 Gait Evaluation W/any additional score 05/18/24 13:30 Cognition No cognitive impairment 05/18/24 13:30 Fall Total Score 43 05/18/24 13:30 Level of Risk Moderate Risk 05/18/24 13:30 Problems HTN (hypertension) (Chronic) Alcohol withdrawal syndrome (Acute) v v v v v v v v v Sending and/or Receiving Nurses: Please use comment section below to note any information pertinent to the patient hand-off not included above. Information / Comments: Pt arrives to [address] via wheelchair Report received from: Vera Slaughter RN
[2024-05-19] MEDS: Rosuvastatin 20 MG TAB PO (19:54)
[2024-05-19] MEDS: Normal Saline Flush 10 ML SYR IVP (19:56)
[2024-05-20 03:41] VITALS: BP 180/92; PULSE 88; RESP 18; TEMP 36.8; O2SAT 96
[2024-05-20] MEDS: Budesonide/Formoterol 160/4.5 6 GM 60 PUFF INH IH ×2 (05:37→08:11)
[2024-05-20 08:06] VITALS: BP 140/114; PULSE 107; RESP 18; TEMP 36.8; O2SAT 98
--- NOTE | 2024-05-20 08:59 | PDOC.CMPRO ---
Date of service: 05/20/24 Time of Service: 08:59 SDOH(Care Management) Screening Will the Patient Participate in the Screening?: Declined to provide
[2024-05-20] MEDS: hydroCHLOROthiazide 12.5 MG TAB PO (09:40)
[2024-05-20] MEDS: Metoprolol 12.5 MG TAB PO (09:41)
[2024-05-20] MEDS: Valsartan 40 MG TAB PO (09:41)
[2024-05-20] MEDS: Normal Saline Flush 10 ML SYR IVP (09:43)
[2024-05-20] MEDS: Nicotine 21 MG/24 HR PATCH TD (10:32)
--- NOTE | 2024-05-20 11:31 | DSE_ITS ---
Date of service: 05/20/24 Time of Service: 12:16 DS: Diagnosis Discharge Diagnosis (1) Alcohol withdrawal syndrome: Status: Acute (2) HTN (hypertension): Status: Chronic Discharge Plan Disposition Patient Disposition: Home Condition: Good Discharge Details Reason For Visit: Alcohol Withdrawal Admit Date/Time: 05/18/24 11:28 Admit Provider: Colby Sánchez Attending Provider: Colby Sánchez Primary Care Provider: Ida Auguste Hospital Course Hospital Course: Patient initially presented with signs and symptoms consistent with acute alcohol withdrawal. He was placed on phenobarbital protocol after receiving IV loading dose in the emergency department. He initially required frequent as needed doses but last dose of phenobarbital was around 2 AM in the morning of 05/19/2024. Since that time patient has had significant improvement in his withdrawal symptoms and was determined to be stable for discharge home. Home Meds and New Rx's Prescriptions: Continued hydrochlorothiazide 12.5 mg capsule 12.5 mg PO DAILY Patient Comments: TAKE 1 CAPSULE BY MOUTH ONCE DAILY metoprolol tartrate 25 mg tablet 12.5 mg PO DAILY Patient Comments: TAKE ONE-HALF TABLET BY MOUTH TWICE DAILY valsartan 40 mg tablet 40 mg PO DAILY Patient Comments: TAKE 1 TABLET BY MOUTH TWICE DAILY budesonide-formoterol [Breyna] 160-4.5 mcg/actuation HFA aerosol inhaler 2 puff INHALATION BID Patient Comments: INHALE 2 PUFFS BY MOUTH TWICE DAILY. RINSE MOUTH AFTER USE rosuvastatin 20 mg tablet 20 mg PO ONCE Patient Comments: TAKE 1 TABLET BY MOUTH ONCE DAILY Discharge Instructions Stand Alone Forms: Nursing Discharge Form Referrals: Ida Auguste PA [Primary Care Provider] - 05/30/24 11:00 am Activity:: Activity as Tolerated Equipment/Supplies:: No Equipment Needed Diet:: As Tolerated Discharge Orders Discharge Orders: Discharge Order (Routine); Ordered 05/20/24 Ordered By: Colby Sánchez DS: Summary Time Spent with Patient providing and/or coordinating discharge services: Greater than 30 minutes Status at Discharge Functional status at discharge: independent ambulation Overall status at discharge: patient is back to baseline Mental Status: mental status grossly normal Speech and Movement: speech and movement normal Mood: congruent mood Affect: normal affect Quality:SDOH Health Related Social Needs: No Data to Display Exam Narrative Exam Narrative: Well-appearing gentleman sitting up in the chair no acute distress, very mildly tremulous though significantly improved as compared to admission, ANO x 4, heart regular rhythm, lungs clear to auscultation bilaterally, abdomen soft, nontender, nondistended Psych Mental Status: mental status grossly normal Speech and Movement: speech and movement normal Mood: congruent mood Affect: normal affect DS: Data Vitals/I&O Vitals and I&O: Vital Signs Temperature 98.2 F 05/20/24 08:06 Temperature Source Skin 05/20/24 08:06 Pulse 107 H 05/20/24 08:06 Pulse 89 05/19/24 11:30 Respiratory Rate 18 05/20/24 08:06 Respiratory Effort Normal 05/18/24 13:30 Respiratory Depth Normal 05/18/24 13:30 Respiratory Pattern Normal 05/18/24 13:30 Blood Pressure 140/114 H 05/20/24 08:06 Blood Pressure Mean 132 05/19/24 12:02 Blood Pressure Position Supine 05/18/24 13:30 Pulse Oximetry 98 05/20/24 08:06 Oxygen Delivery Method Room Air 05/20/24 08:06 Oxygen Flow Rate 0 05/20/24 08:06 Pain Level 7 05/20/24 08:06 Comment RN Notified and chargenurse notified 05/19/24 19:28 Intake & Output 05/19/24 05/20/24 05/20/24 17:59 05:59 17:59 Intake Total 780 / 780 Balance 780 / 780 Intake: IV Oral 760 / 760 Other: Comment pt is independent in the room and toilets self. pt denies any issues with Stool Size Moderate Stool Characteristics Soft Voiding Methods Toilet PFSH All Active Problems (Updated 05/18/24 @ 11:41 by Colby Sánchez MD) HTN (hypertension) (Chronic) Alcohol withdrawal syndrome (Acute) Social History Smoking/Tobacco Use Status: Current every day Smoking risk assessment performed?: Yes Alcohol Intake: current Alcohol Intake frequency: 3 or more drinks per day Drug use: Never Substance use type: does not use Time Spent with Patient Time Spent with Patient: <45 minutes Time was spent: preparing to see the patient(eg.review tests), obtaining and/or reviewing separately otained hiistory, ordering medications,tests, procedures, referring, communicating with other health transition of care specialist, indepentently interpreting results, counseling the patient and care coordination
--- NOTE | 2024-05-20 12:13 | CMDISCH_ITS ---
Date of service: 05/20/24 Time of Service: 12:13 LACE Index Scoring Tool Questions: Length of Stay (in days): 2 Was the patient admitted via the E.D.?: Yes E.D. Visits: 1 Answers: Total Score: 6 Risk of Readmission: Low Risk Care Management Discharge Plan Reason for Hospitalization: Alcohol Withdrawal Discharge Plan: Neel is medically ready for discharge and made arrangements to stay at [facility]. Transportation will be pr ovided by his friend Les. Neel will follow up with community providers and his discharge plan of care as instructed. Patient/Family Education Needs: Review discharge instructions, limitations and plan to follow up with community providers. Discuss ask me three and goals of sobriety. SDOH Health Related Social Needs: Health related social needs inadequate housing(Z59.1), housing instability, housed, with risk of homelessness(Z59.811), transportation insecurity(Z59.82) Health related social needs: inadequate housing(Z59.1), housing instability, housed, with risk of homelessness(Z59.811) and transportation insecurity(Z59.82) Care Management Referrals: [facility] (Support with community needs)
[2024-05-20 12:18] VITALS: BP 129/79; PULSE 66
[2024-05-20 12:46] VITALS: BP 107/93; PULSE 101; RESP 18; TEMP 36.8; O2SAT 96
== END 2024-05-20 13:04 | disposition home or self-care (01) | DRG 897 ==
LOC: ER 11:40 → ICU 14:13 → MS 05-19 12:36
PROVIDERS: Admitting Provider Family Medicine; Emergency Provider Emergency Medicine; PCP Physician Assistant; Visit Provider Family Medicine
DX: F10.139 Alcohol abuse with withdrawal, unspecified (principal); I10 Essential (primary) hypertension; W19.XXXA Unspecified fall, initial encounter; F17.210 Nicotine dependence, cigarettes, uncomplicated; Z79.899 Other long term (current) drug therapy
CPT/HCPCS: 00123; 36415; 80053; 80307; 83690; 93005; 94640; 96365; 96366; 99285; J1650; 70450; 80320; 81003; 81015; 82746; 83735; 84443; 85025; 93010; 94664; 99223; 99233; 99239; J2560; J3411; J3475; J3490

== ENCOUNTER 2024-09-04 13:27 | Emergency (ER) | payer MEDICAID, SELFPAY ==
--- NOTE | 2024-09-04 13:30 | DI.RAD_ITS ---
Exam(s) XR CHEST 2V PA LATERAL EXAM: XR CHEST 2V PA LATERAL CLINICAL HISTORY: cough. TECHNIQUE: 2D digital imaging was performed. COMPARISON: No exams were available for comparison FINDINGS: 2 views: Heart size is normal. The mediastinum is not widened. Right lung is clear. There is infiltrate in the left lower lobe retrocardiac region posterior basal segment. No pleural effusions. IMPRESSION: Left lower lobe infiltrate. Called by myself to ER physician 09/04/2024 3:15 p.m. DATA REPOSITORY: RADIATION DOSE DELIVERED:
[2024-09-04 13:31] VITALS: BP 117/81; PULSE 76; RESP 20; TEMP 36.8; O2SAT 93
--- NOTE | 2024-09-04 13:44 | ED.GENADUL_ITS ---
Discharge Plan Disposition Patient Disposition: Home Condition: Stable Discharge Details Clinical Impression: Respiratory infection Primary Care Provider: Andre Mtz ED Provider: Jelani Arreaga Home Meds and New Rx's Prescriptions: New prednisone 20 mg tablet 60 mg PO DAILY 4 Days Qty: 12 0RF amoxicillin-pot clavulanate 875-125 mg tablet 1 tab PO BID Qty: 20 0RF Continued aspirin 81 mg tablet,delayed release (DR/EC) 81 mg PO DAILY metoprolol tartrate 25 mg tablet 12.5 mg PO BID Patient Comments: TAKE ONE-HALF TABLET BY MOUTH TWICE DAILY hydrochlorothiazide 25 mg tablet 25 mg PO DAILY Qty: 90 3RF valsartan 40 mg tablet 40 mg PO DAILY Qty: 90 3RF budesonide-formoterol [Breyna] 160-4.5 mcg/actuation HFA aerosol inhaler 2 puff INHALATION BID Patient Comments: INHALE 2 PUFFS BY MOUTH TWICE DAILY. RINSE MOUTH AFTER USE rosuvastatin 20 mg tablet 20 mg PO ONCE Patient Comments: TAKE 1 TABLET BY MOUTH ONCE DAILY Discharge Instructions Additional Instructions: Take the antibiotic and prednisone as prescribed Follow-up with your primary care provider as scheduled this Thursday If you feel more ill or have severe worsening shortness of breath return to the emergency department for reevaluation HPI General Mode of arrival: ambulatory . Date/Time Provider Initiated Documentation: 09/04/24 13:31 . Limitations to Documentation: no limitations . Information obtained by: patient . History of Present Illness 58 year old M presents to the emergency department with the chief complaint of cough, described as moderate, Patient started experiencing this day(s) (10) and it has been intermittent. No relieving factors improve symptom(s), No exacerbating factors reported . Patient notes denies chest pain, fever/chills and nausea/vomiting. Patient did receive the following treatments prior to arrival, none Related Data Home Medications ?Medication ?Instructions ?Recorded ?Confirmed budesonide-formoterol HFA 160 2 puff inhalation BID 05/18/24 09/04/24 mcg-4.5 mcg/actuation aerosol inhaler (Breyna) rosuvastatin 20 mg tablet 20 mg PO ONCE 05/18/24 09/04/24 aspirin 81 mg tablet,delayed 81 mg PO DAILY 07/26/24 09/04/24 release metoprolol tartrate 25 mg tablet 12.5 mg PO BID 07/26/24 09/04/24 hydrochlorothiazide 25 mg tablet 25 mg PO DAILY #90 tabs 08/08/24 09/04/24 valsartan 40 mg tablet 40 mg PO DAILY #90 tabs 08/29/24 09/04/24 amoxicillin 875 mg-potassium 1 tab PO BID #20 tabs 09/04/24 clavulanate 125 mg tablet prednisone 20 mg tablet 60 mg (3 x 20 mg) PO DAILY 4 days 09/04/24 #12 tabs Previous Rx's ?Medication ?Instructions ?Recorded hydrochlorothiazide 25 mg tablet 25 mg PO DAILY #90 tabs 08/08/24 valsartan 40 mg tablet 40 mg PO DAILY #90 tabs 08/29/24 amoxicillin 875 mg-potassium 1 tab PO BID #20 tabs 09/04/24 clavulanate 125 mg tablet prednisone 20 mg tablet 60 mg (3 x 20 mg) PO DAILY 4 days 09/04/24 #12 tabs Allergies Allergy/AdvReac Type Severity Reaction Status Date / Time lisinopril Allergy Unknown Other (See Verified 09/04/24 13:30 Comment) General Stated Complaint: RespSymp ÁNGELA: 3 Review of Systems All systems reviewed & are unremarkable except as noted in HPI and below Constitutional Constitutional: Denies chills, Denies fever(s) and Denies weakness ENT Ears, Nose, Mouth, and Throat: Reports sinus pain Cardiovascular Cardiovascular: Denies chest pain and Denies dyspnea Respiratory Respiratory: Reports cough and Denies dyspnea Gastrointestinal Gastrointestinal: Denies abdominal pain, Denies nausea and Denies vomiting Musculoskeletal Musculoskeletal: Denies joint swelling Neurologic Neurologic: Denies weakness Exam Const General: no acute distress Orientation: alert [facility] Head: normal to inspection Ears: external ears normal General nose exam: external nose normal Mouth: moist mucous membranes Eyes General: appearance normal, both eyes and all related structures Neck Neck: normal visual inspection Resp Effort & Inspection: normal respiratory effort and able to speak in complete sentences Auscultation: rhonchi and wheezes Cardio Jugular venous pressure: no JVD Rate: regular rate Heart Sounds: no murmurs Skin General skin exam: no rashes or lesions noted Neuro General: patient alert and patient oriented x3 Extrem General: normal to inspection Psych Mental Status: mental status grossly normal Course Vital Signs Vital signs: Vital Signs Temperature 36.8 C 09/04/24 13:31 Pulse 76 09/04/24 13:31 Respiratory Rate 20 09/04/24 13:31 Blood Pressure 117/81 09/04/24 13:31 Pulse Oximetry 93 09/04/24 13:31 Temperature 36.8 C 09/04/24 13:31 Temperature Source Oral 09/04/24 13:31 Pulse 76 09/04/24 13:31 Respiratory Rate 20 09/04/24 13:31 Blood Pressure 117/81 09/04/24 13:31 Pulse Oximetry 93 09/04/24 13:31 Oxygen Delivery Method Room Air 09/04/24 13:31 Oxygen Flow Rate 0 09/04/24 13:31 Pain Level 8 09/04/24 13:31 Medical Decision Making 58-year-old male who states he has a history of smoking and is on inhalers comes in with 10 days of productive cough. Denies any fevers or dyspnea or chest pain. He also notices sinus pain and congestion. He is well-appearing ambulatory on arrival. Speaking full sentences. Does have apical wheezing bilaterally as well as mild rhonchi at the bases bilaterally. No JVD, no leg swelling. I suspect URI versus sinusitis versus COPD exacerbation, will check chest x-ray and treat his symptoms with a DuoNeb and prednisone. Given lack of fever and his well appearance I doubt sepsis and do not feel blood work is indicated. Patient stable, lung sounds improved. X-ray on my read is negative and Fluvid negative. Good he says any high symptoms for about 10 days and also likely has a COPD exacerbation we will initiate antibiotics Augmentin. He is stable for discharge and follow-up with his PCP this week, return precautions given Differential Diagnosis Differential Diagnosis: COPD exacerbation, sinusitis, pneumonia, COVID Quality:SDOH Health Related Social Needs: No Data to Display PFSH All Active Problems (Updated 09/04/24 @ 14:41 by Jelani Arreaga MD) Respiratory infection (Acute) Current smoker (Acute) Otosclerosis of right ear (Acute) Mixed hyperlipidemia (Acute) Disorder of artery (Acute) Hyperlipidemia (Acute) Neurogenic claudication (Acute) Bilateral knee pain (Acute) Arthritis of left hip (Acute) Prediabetes (Acute) Chronic obstructive lung disease (Chronic) Metabolic syndrome X (Acute) Atherosclerosis of aorta (Acute) Carotid artery occlusion (Acute) Aneurysm of thoracic aorta (Acute) Abdominal aortic aneurysm (Acute) JOEY (obstructive sleep apnea) (Chronic) HTN (hypertension) (Chronic) Medical History (Updated 09/04/24 @ 14:41 by Jelani Arreaga MD) History of alcohol use disorder Surgical History (Updated 07/26/24 @ 08:00 by Angelica Zendejas) History of hip surgery (12/18/22) Isauro/Nicanor Stented coronary artery [facility] 2015 Social History (Updated 07/14/24 @ 15:46 by Vanessa Gant) Smoking/Tobacco Use Status: Current every day Tobacco: How many years used: 40 Quit status: considering quitting Second Hand Exposure: No Smoking risk assessment performed?: Yes Alcohol Intake: current Alcohol Intake frequency: holidays/special occasions only Drug use: Never Substance use type: does not use Adopted: No Household members: friend(s) Housing: house Number of Children: 1 number of grandchildren: 0 Communication Needs: Hard of Hearing and Corrective Lenses Do you need help understanding health information?: Never Pets and animals: No Sexually active: No Do you think of yourself as: straight/heterosexual Current gender identity: male What is your relationship status?: How often do you talk on the phone with friends or family?: three or more times per week How often do you get together with friends or relatives?: three or more times per week Panel score (0-1 are the most socially isolated patients): 1 What type of physical activity do you participate in: walking Duration: 30-45 minutes/day Frequency: 3-4 times per week Chelo/Druze: Ep[employer]opalian Special chelo needs: No Seatbelt use: always Helmet use: Yes Drive intox or ride w/intox 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
[2024-09-04] MEDS: predniSONE 20 MG TAB 60 MG PO (13:54)
[2024-09-04] MEDS: Albuterol/Ipratropium 3 ML UPD VIAL UPD (13:54)
[2024-09-04 14:31] LABS: COVID-19 PCR Negative (Negative); Influenza A PCR Negative (Negative); Influenza B PCR Negative (Negative); RSV PCR Negative (Negative); Source Nasopharynx
--- NOTE | 2024-09-04 14:50 | DI.VRAD_ITS ---
PROCEDURE INFORMATION: Exam: XR Chest Exam date and time: 09/04/2024 2:11 PM Age: 58 years old Clinical indication: Cough TECHNIQUE: Imaging protocol: Radiologic exam of the chest. Views: 2 views. COMPARISON: No relevant prior studies available. FINDINGS: Lungs: Opacities in the lower lobes seen especially on the lateral may represent atelectasis or pneumonia.. Pleural spaces: Unremarkable. No pleural effusion. No pneumothorax. Heart/Mediastinum: Unremarkable. No cardiomegaly. Bones/joints: Unremarkable. IMPRESSION: Opacities in the lower lobes seen especially on the lateral may represent atelectasis or pneumonia.. Dictated and Authenticated by: Joey Huggins MD. Ordering:CARLIE Palomares MD
[2024-09-04] MEDS: Albuterol HFA 8 GM 60 PUFF INH IH (14:56)
[2024-09-04] MEDS: Amoxicillin 875/Clav. 125 TAB PO (14:56)
[2024-09-04 14:57] VITALS: BP 103/64; PULSE 81; RESP 20; TEMP 36.6; O2SAT 93
== END 2024-09-04 14:58 | disposition home or self-care (01) ==
PROVIDERS: Emergency Provider Emergency Medicine; PCP Family Medicine
DX: J98.8 Other specified respiratory disorders (principal); R05.1 Acute cough; F17.210 Nicotine dependence, cigarettes, uncomplicated
CPT/HCPCS: 87637; 94640; 99284; 71046; J7512; J7620

== ENCOUNTER 2024-09-15 01:51 | Outpatient (CLI) | payer MEDICAID, SELFPAY ==
--- OUTSIDE RECORDS SUMMARY | 2024-09-15 01:59 | XMS_ITS | Encounter Summary ---
Author Organization [facility] Address [address] [place] [address] Care Team Providers Care Cost Reduction Engineer Name Role Phone Unavailable Primary Care Provider Unavailabl e Reason for Visit * (Routine/Next Available) - Receiving Office to Obtain Authorization Specialty Diagnoses / Procedures Referred By Heather t Referred To Contact Procedures US OUTSIDE IMAGES BODY Imaging, External Referral ID Status Reason Start Date Expiration Date Visits Requested Visits Authorized [id number] Receiving Office to Obtain Authorization 07/15/2022 1 1 Encounter Details Date Type Department Care Team (Latest Contact Info) Description 07/01/2022 - 07/01/2022 23:59 EST Hospital Encounter [facility] Secondary Reads [place] Discharge Disposition: Home or Self Care Social History Tobacco Use Types Packs/Day Years Used Date Smoking Tobacco: Never Assessed Sex and Gender Information Value Date Recorded Sex Assigned at Not on file Legal Sex Male 11:20 EST Gender Identity Not on file Sexual Orientation Not on file documented as of this encounter Medications at Time of Discharge hydroCHLOROthiazi de (MICROZIDE) 12.5 mg capsule Take by mouth daily. 06/12/2022 losartan (COZAAR) 50 mg tablet Take 1 Tablet by mouth. 06/25/2022 documented as of this encounter Discharge Disposition Disposition Code Departure Means Destination Home or Self Care documented in this encounter Plan of Treatment Not on file documented as of this encounter Procedures Procedure Name Priority Date/Time Associated Diagnosis Comments US OUTSIDE IMAGES BODY Routine 07/01/2022 9:19 EST documented in this encounter Results * US OUTSIDE IMAGES BODY (07/01/2022 9:19 EST) Narrative 07/15/2022 9:19 EST This is a non-reportable exam. us External Imaging IMG OTHER IMAGING ORDERABLES Fi nal Result documented in this encounter Visit Diagnoses Not on filedocumented in this encounter
--- OUTSIDE RECORDS SUMMARY | 2024-09-15 01:59 | XMS_ITS | Encounter Summary ---
Author Organization [facility] Address [address] [place] [address] Care Team Providers Care Consumer Analyst Name Role Phone Unavailable Primary Care Provider Unavailabl e Reason for Visit * Reason Onset Date Comments Appointment Related 05/20/2023 Encounter Details Date Type Department Care Team (Late st Contact Info) Description 05/20/2023 Telephone [facility] Adult Neurology - [facility] [address], [place] [id number] Ramona Urias DO [address] [place] [phone] Appointment Related Social History Tobacco Use Types Packs/Day Years Used Date Smoking Tobacco: Every Day Cigarettes Smokeless Tobacco: Never Alcohol Use Standard Drinks/Week Comments Not Currently 6 (1 standard drink = 0.6 oz pur e alcohol) wine with dinner Sex and Gender Information Value Date Recorded Sex Assigned at Not on file Legal Sex Male 11:20 EST Gender Identity Not on file Sexual Orientation Not on file documented as of this encounter Miscellaneous Notes * Telephone Encounter - Lynne Rivero MA - 05/20/2023 4240 EDT Called pt to offer help logging onto [employer] five minutes prior to meeting time. Pt did not answer. LVM informing them that we would stay on the call until ten minutes after the appointment time to help them check in and if they did not log in by that time they would need to callto reschedule. Called again 8 minutes after appt. time. Pt did not show, updated appointment statusto no show. documented in this encounter Plan of Treatment Not on file documented as of this encounter Visit Diagnoses Not on filedocumented in this encounter
--- OUTSIDE RECORDS SUMMARY | 2024-09-15 01:59 | XMS_ITS | Encounter Summary ---
Author Organization [facility] [place] [address] Care Team Providers Care Endocrinology Specialist Name Role Phone Unavailable Primary Care Provider Unavailabl e Encounter Details Date Type Department Care Team (Late st Contact Info) Description 02/11/2023 Ancillary Procedure Radiology Library at [facility] [place] [phone] Henry Cuadra III, MD [facility] [place] [address] Social History Tobacco Use Types Packs/Day Years Used Date Smoking Tobacco: Never Assessed Sex and Gender Information Value Date Recorded Sex Assigned at Not on file Gender Identity Not on file Sexual Orientation Not on file documented as of this encounter Plan of Treatment Upcoming Encounters Date Type Department Care Team (Late st Contact Info) Description 10/13/2024 12:45 PM EST Office Visit Audiology at [address] [phone] Medina Robbins AUD [facility] [place] [address] 10/13/2024 1:40 PM EST Office [place] [phone] Henry Cuadra III, MD [facility] [place] [address] documented as of this encounter Procedures Procedure Name Priority Date/Time Associated Diagnosis Comments FILM LIBRARY STORAGE ONLY DX SPINE Routine 02/11/2023 12:00 AM EDT documented in this encounter Results * Film Library- Storage Only DX Spine (02/11/2023 12:00 AM EDT) Narrative DILSHAD TREVIÑO - 09/07/2024 8:28 PM EST This exam is auto-finalizing. It's purpose is for storage only. Henry Cuadra III, MD IMSanjeev FILM LIBRARY ORDERABLES Performing Organization Address City/State/[facility] Co de Phone Number [place], [place] documented in this encounter Visit Diagnoses Not on filedocumented in this encounter
--- OUTSIDE RECORDS SUMMARY | 2024-09-15 01:59 | XMS_ITS | Encounter Summary ---
Author Organization [facility] Address [address] [place] [address] Care Team Providers Care Marketing Strategy Analyst Name Role Phone Unavailable Primary Care Provider Unavailabl e Reason for Visit * Reason Comments Follow-up Follow up on carotid and AAA * Consult (Routine) - Receiving Office to Obtain Authorization Specialty Diagnoses / Procedures Referred By Heather henderson Referred To Contact Vascular Surgery Diagnoses Disorder of arteries and arterioles, unspecified (HCC-CMS) Angel Gongora MD [facility] Cardiology [address] [place] [address] Phone: tel: fax: Vascular Surgery and Endovascular Therapy - [address] [address] Phone: tel: fax: Referral ID Status Reason Start Date Expiration Date Visits Requested Visits Authorized [id number] Receiving Office to Obtain Authorization 1 1 Encounter Details Date Type Department Care Team (Late st Contact Info) Description 04/04/2024 11:00 EDT Office Visit Vascular Surgery and Endovascular Therapy - [address] [phone] Eric Piedra MD [address] [facility], [address] [place] [phone] Ruptured abdominal aortic aneurysm (AAA), unspecified part (HCC-CMS) (Primary Dx); Stenosis of left carotid artery; Aneurysm of infrarenal abdominal aorta, unspecified whether ruptured (HCC-CMS); DORIS (cerebral atherosclerosis) Social History Tobacco Use Types Packs/Day Years Used Date Smoking Tobacco: Every Day Cigarettes Smokeless Tobacco: Never Tobacco Cessation:Ready to Q uit: Not Asked; Counseling Given: Not Answered Alcohol Use Standard Drinks/Week Comments Not Currently 6 (1 standard drink = 0.6 oz pur e alcohol) wine with dinner Sex and Gender Information Value Date Recorded Sex Assigned at Not on file Legal Sex Male 11:20 EST Gender Identity Not on file Sexual Orientation Not on file documented as of this encounter Last Filed Vital Signs Vital Sign Reading Time Taken Comments Blood Pressure 146/104 04/04/2024 1045 EDT Pulse 64 04/04/2024 1045 EDT Temperature - - Respiratory Rate - - Oxygen Saturation 97% 04/04/2024 1045 EDT Inhaled Oxygen Concentration - - Weight - - Height - - Body Mass Index - - documented in this encounter Functional Status * Because of a physical, mental, or emotional condition, does this person have difficulty doing errands alone such as visiting a doctor's office or shopping? Answer Date of Assessment Author No 04/04/2024 10:45 EDT documented as of this encounter Mental Status * Because of a physical, mental, or emotional condition, does this person have serious difficulty concentrating, remembering, or making decisions? Answer Entry Date Author No 04/04/2024 10:45 EDT documented in this encounter Progress Notes * Eric Piedra MD - 04/04/2024 1100 EDT Osvaldo is here today in the office. He is a 58-year-old gentleman who 2 years ago we saw him with regard to an occluded internal carotid artery on the right and a stented left carotid. He did not havehis stent placed here at [facility]. In any case, he was getting preoped for some knee surgery and they wanted preop clearance. In any case, he is back here today in the office. We really do not have any notes her records on him, but apparently he had a screening test that demonstrated he had a 3.5 cm infrarenal aorta, which really is more ectatic than aneurysmal and he was asked to return here. This is all verbally from Osvaldo. He has had no neurologic events, nor does he have any current belly painor back pain. Without any studies it is difficult for us to evaluate Osvaldo and he understands that. On physical exam, his belly is obese. It is difficult to feel an aortic pulsation. He has good popliteal pulses bilaterally. Our thoughts are as follows: We are going to get him back in the next 4 to 6 weeks for aneurysm screening and a carotid study that will give us some data that we can at least utilize and take a look at and move forward with. This office note has been dictated. Eric Piedra MD 04/04/2024 11:01 documented in this encounter Plan of Treatment Not on file documented as of this encounter Visit Diagnoses Diagnosis Ruptured abdominal aortic aneurysm (AAA), unspecified part (HCC-CMS)- Primary Stenosis of left carotid artery Occlusion and stenosis of carotid artery without mention of cerebral infarction Aneurysm of infrarenal abdominal aorta, unspecified whether ruptured (HCC-CMS) DORIS (cerebral atherosclerosis) Cerebral atherosclerosis documented in this encounter Discontinued Medications Medication Sig Discontinue Reason Start Date End Da te hydroCHLOROthiazide (HYDRODIURIL) 25 mg tablet Take 25 mg by mouth daily. Alternate therapy (will not send dc message to pharm) 04/04/2024 losartan potassium (LOSARTAN ORAL) Take by mouth. Error 04/04/2024 documented as of this encounter Historical Medications * This list may reflect changes made after this encounter. valsartan (DIOVAN) 40 mg tablet Take 1 Tablet by mouth. 02/11/2023 prednisoLONE (PRED FORTE) 1 % ophthalmic suspension Use as directed. 03/17/2024 ofloxacin (FLOXIN) 0.3 % otic solution TWICE A DAY 03/07/2024 aspirin 81 mg EC tablet Take 1 Tablet by mouth. 08/22/2022 metoprolol TARtrate (LOPRESSOR) 25 mg tablet Take 0.5 Tablets by mouth. 11/05/2022 added in this encounter
--- OUTSIDE RECORDS SUMMARY | 2024-09-15 01:59 | XMS_ITS | Referral Summary ---
Author Organization [facility] Address [address] [place] [address] Care Team Providers Care Contract Administrator Name Role Phone Ida Auguste Primary Care Provider [phone] Allergies No known active allergies Medications SYMBICORT 160-4.5 mcg/actuation HFA aerosol inhaler inhaler 07/23/2022 Act zaida hydroCHLOROthia zide (MICROZIDE) 12.5 mg capsule Take by mouth daily. 06/12/2022 Active losartan (COZAAR) 50 mg tablet Take 1 Tablet by mouth. 06/25/2022 Active rosuvastatin (CRESTOR) 5 mg tablet Take 1 Tablet by mouth every evening. 07/10/2022 Active loperamide (IMODIUM) 2 mg capsule TAKE 1 CAPSULE BY MOUTH EVERY 2 HOURS NEEDED FOR DIARRHEA. NOT MORE THAN 16MG PER DAY 07/10/2022 Active metoprolol TARtrate (LOPRESSOR) 25 mg tablet Take 0.5 Tablets by mouth. 11/05/2022 Active aspirin 81 mg EC tablet Take 1 Tablet by mouth. 08/22/2022 Active ofloxacin (FLOXIN) 0.3 % otic solution TWICE A DAY 03/07/2024 Act zaida prednisoLONE (PRED FORTE) 1 % ophthalmic suspension Use as directed. 03/17/2024 Active valsartan (DIOVAN) 40 mg tablet Take 1 Tablet by mouth. 02/11/2023 Active Social History Tobacco Use Types Packs/Day Years [...] on file Sexual Orientation Not on file Last Filed Vital Signs Vital Sign Reading Time Taken Comments Blood Pressure 124/88 05/11/2024 1007 EDT Pulse 62 05/11/20241006 EDT Temperature - - Respiratory Rate 18 07/28/2022 09 EST Oxygen Saturation 97% 05/11/20241006 EDT Inhaled Oxygen Concentration - - Weight 90.4 kg (199 lb 3.2 oz) 07/28/2022919 E ST Height 174.5 cm (5' 8.7) 07/28/2022 09 EST Body Mass Index 29.67 07/28/2022919 EST Functional Status * Because of a physical, mental, or emotional condition, does this person have difficulty doing errands alone such as visiting a doctor's office or shopping? Answer Date of Assessment Author No 04/04/2024 10:45 EDT Mental Status * Because of a physical, mental, or emotional condition, does this person have serious difficulty concentrating, remembering, or making decisions? Answer Entry Date Author No 04/04/2024 10:45 EDT Plan of Treatment Not on file Insurance MEDICAID [facility] Advance Directives For more information, please contact: [phone] Documents on File Type Date Recorded Patient Psychiatric Social Worker Expl anation Advance Directive 01/13/2023 11:33 Appt Of Health Care Agent-Signed Care Teams Contract Administrator Relationship Specialty Start Date End Date Ida Auguste [address] [place] [phone] PCP - General Family Medicine - Primary Care 05/11/24
--- OUTSIDE RECORDS SUMMARY | 2024-09-15 01:59 | XMS_ITS | Encounter Summary ---
Author Organization [facility] Address [address] [place] [address] Care Team Providers Care Conference Services Director Name Role Phone Ida Auguste Primary Care Provider [phone] Encounter Details Date Type Department Care Team (Late st Contact Info) Description 02/13/2023 Lab Requisition [facility] Pathology & Laboratory Medicine - [address] [address] Outr Resulting Lab, Provider Social History Tobacco Use Types Packs/Day Years [...] as of this encounter Plan of Treatment Not on file documented as of this encounter Procedures Procedure Name Priority Date/Time Associated Diagnosis Comments FUNGUS CULTURE/SMEAR Today 02/13/2023 9:30 EDT documented in this encounter Results * FUNGUS CULTURE/SMEAR (02/13/2023 9:30 EDT) Organism ID No fungi isolated 03/13/2023 10:59 EDT [facility] Fungal Smear No Fungi Seen 03/13/2023 10:59 EDT [facility] Tissue ENTIRE EAR / Unknown 02/13/2023 9:30 EDT 02/13/2023 21:22 EDT us Provider Outr Resulting Lab MICROBIOLOGY - GENER AL ORDERABLES Final Result [facility] [address] [place] [address] documented in this encounter Visit Diagnoses Not on filedocumented in this encounter Care Teams Conference Services Director Relationship Specialty Start Date End Date Ida Auguste [address] [place] [phone] PCP - General Family Medicine - Primary Care 05/11/24 documented as of this encounter
--- OUTSIDE RECORDS SUMMARY | 2024-09-15 01:59 | XMS_ITS | Encounter Summary ---
Author Organization [facility] Address [address] [place] [address] Care Team Providers Care Biodiesel Process Control Technician Name Role Phone Unavailable Primary Care Provider Unavailabl e Reason for Visit * Cardiology (STAT) - Receiving Office to Obtain Authorization Specialty Diagnoses / Procedures Referred By Heather t Referred To Contact Diagnoses Shortness of breath Procedures TRANSTHORACIC ECHO (TTE) COMPLETE DC ECHO HEART XTHORACIC,COMPLETE W DOPPLER Addis Salamanca FNP [address] [place] [address] Phone: tel: fax: [facility] Referral ID Status Reason Start Date Expiration Date Visits Requested Visits Authorized [id number] Receiving Office to Obtain Authorization 12/03/2022 1 1 Encounter Details Date Type Department Care Team (Latest Contact Info) Description 12/03/2022 8:43 EDT - 12/03/2022 23:59 EDT Hospital Encounter [facility] Non-Invasive Cardiology - [address] [id number] Shortness of breath Discharge Disposition: Home or Self Care Social [...] Sign Reading Time Taken Comments Blood Pressure 138/86 12/03/2022 1029 EDT Pulse - - Temperature - - Respiratory Rate - - Oxygen Saturation - - Inhaled Oxygen Concentration - - Weight - - Height - - Body Mass Index - - documented in this encounter Medications at Time of Discharge aspirin 81 mg EC tablet Take 1 Tablet by mouth. 08/22/2022 hydroCHLOROthiazi de (MICROZIDE) 12.5 mg capsule Take by mouth daily. 06/12/2022 loperamide (IMODIUM) 2 mg capsule TAKE 1 CAPSULE BY MOUTH EVERY 2 HOURS NEEDED FOR DIARRHEA. NOT MORE THAN 16MG PER DAY 07/10/2022 losartan (COZAAR) 50 mg tablet Take 1 Tablet by mouth. 06/25/2022 metoprolol TARtrate (LOPRESSOR) 25 mg tablet Take 0.5 Tablets by mouth. 11/05/2022 rosuvastatin (CRESTOR) 5 mg tablet Take 1 Tablet by mouth every evening. 07/10/2022 SYMBICORT 160-4.5 mcg/actuation HFA aerosol inhaler inhaler 07/23/2022 hydroCHLOROthiazi de (HYDRODIURIL) 25 mg tablet Take 25 mg by mouth daily. 04/04/2024 losartan potassium (LOSARTAN ORAL) Take by mouth. 04/04/2024 documented as of this encounter Discharge Disposition Disposition Code Departure Means Destination Home or Self Care documented in this encounter Plan of Treatment Not on file documented as of this encounter Procedures Procedure Name Priority Date/Time Associated Diagnosis Comments TRANSTHORACIC ECHO (TTE) COMPLETE Routine 12/03/2022 9:00 EDT Shortness of breath documented in this encounter Results * TRANSTHORACIC ECHO (TTE) COMPLETE W/DOPPLER W/CF NO CONTRAST (12/03/2022 9:00 EDT) LA Atrial Length A2C 5.7 cm MERGE CARDI O LA Atrial Area A4C 18.2 cm2 MERGE CARDIO LA ID/bsa, A-P 1.7 cm/m2 MERGE CARDIO Mitral valve area, PHT, DP 3.3 cm2 MERGE CARDIO LV ID, ED, PLAX 4.5 3.5 - 6.0 cm MERGE CARDIO LVIDD BY MMODE 4.5 cm MERGE CARDIO LV ID, ES, PLAX 3.1 2.1 - 4.0 cm MERGE CARDIO LA ID, A-P, ES 3.7 cm MERGE CARDIO LV PW thickness, ED, PLAX 1.3 0.6 - 1.1 cm MERGE CARDIO Aortic root ID 3.9 cm MERGE CARDIO LV ejection fraction, 1-p A4C 54 % MERGE CARDIO LV e', lateral 0.05 m/s MERGE CARDIO Mitral deceleration time 227 ms MERGE CARDIO LV IVRT, DP 63 msec MERGE CARDIO Mitral E-wave peak velocity 0.7 m/s MERGE CARDIO Mitral pressure half-time 67 ms MERGE CARDIO Mitral A-wave peak velocity 0.8 m/s MERGE CARDIO LV Systolic Volume Index 19.0 mL/m2 MERGE CARDIO LV Diastolic Volume Index 41.0 mL/m2 MERGE CARDIO LA Atrial Length A4C 6.9 cm MERGE CARDI O Mitral deceleration slope 298 cm/s2 MERGE CARDIO EF 55 % MERGE CARDIO LA volume, ES, BP 48.0 ml MERGE CARDIO LA volume/bsa, ES, A4C 18.0 ml/m2 MERGE CARDIO LA volumes, ES, A4C 39.0 ml MERGE CARDIO LA volume/bsa, ES, BP 22.0 ml/m2 MERGE CARDIO LV Systolic Volume 40 mL MERGE CARDIO LV Diastolic Volume 89 mL MERGE CARDIO Interventricular Septum to Posterior Wall Thickness Ratio 1 MERGE CARDIO IVS thickness, ED, PLAX 1.4 cm MERGE CARDIO LV e', medial 0.05 m/s MERGE CARDIO LV e', average 0.05 m/s MERGE CARDIO Ascending aorta ID, a-p 3.6 cm MERGE CARDIO LA Atrial Area A2C 18.2 cm2 MERGE CARDIO LA/aortic root ratio 0.95 MERGE CARDI O LV end diastolic volume 1-p A2C 84 ml MERGE CARDIO LV ejection fraction, 1-p A2C 55 % MERGE CARDIO LV E/e', lateral 13.0 MERGE CARDIO LV E/e', medial 0.0 MERGE CARDIO LV E/e', average 7 MERGE CARDIO LV end-diastolic volume, 1-p A4C 87 ml MERGE CARDIO Anatomical Region Laterality Modality Ultrasound Narrative 12/03/2022 11:09 EDT ?Left??Ventricle: The left ventricular cavity was normal in size. Left ventricular systolic function was normal with an ejection fraction of 50-55%. The estimated left ventricular ejection fraction by biplane Hollins's method was 55%. Some parameters suggest left ventricular diastolic dysfunction. There was moderate hypertrophy of the left ventricle. ?Right??Ventricle: The right ventricular cavity was normal in size. Right ventricular systolic function was normal. ?Pulmonic??Artery: Pulmonary systolic pressure was within the normal range, estimated to be 25 mmHg. Left Ventricle The left ventricular cavity was normal in size. Left ventricular systolic function was normal with an ejection fraction of 50-55%. The estimated left ventricular ejection fraction by biplane Hollins's method was 55%. Some parameters suggest left ventricular diastolic dysfunction. There was moderate hypertrophy of the left ventricle. Left ventricular wall motion was normal; there were no regional wall motion abnormalities. Right Ventricle The right ventricular cavity was normal in size. Right ventricular systolic function was normal. Right ventricular wall thickness was normal. Left Atrium The left atrium was normal in size. Right Atrium The right atrium was normal in size. IVC/SVC The inferior vena cava was normal in size. Mitral Valve Mitral valve structure was normal. There was mild annular calcification. There was no significant mitral valve stenosis or regurgitation. Tricuspid Valve Tricuspid valve structure was normal. There was trace tricuspid valve regurgitation. There was no tricuspid valve stenosis. Aortic Valve The aortic valve structure was trileaflet. The aortic leaflets were mildly thickened and mildly calcified. There was no aortic valve stenosis. There was no aortic valve regurgitation. Pulmonic Valve There was no pulmonic valve regurgitation. There was no pulmonic valve stenosis. Ascending Aorta The aorta was normal in size. Pericardium There was no pericardial effusion. Pulmonic Artery Pulmonary systolic pressure was within the normal range, estimated to be 25 mmHg. Study Details Study status: Routine. Transthoracic echocardiography. M-Mode, complete 2D, complete spectral Doppler, and color Doppler.The study was interpreted by [facility]. Pertinent images and digital data are archived for permanent storage and are available for subsequent review. Scanning was performed from the apical, parasternal, subcostal and suprasternal acoustic windows. Overall the study quality was adequate. Addis Salamanca [facility] CARDIAC ECHO ORDERABLES Final Result documented in this encounter Visit Diagnoses Diagnosis Shortness of breath documented in this encounter
--- OUTSIDE RECORDS SUMMARY | 2024-09-15 01:59 | XMS_ITS | Clinical Summary ---
Author Organization [facility] Address [address] [place] [address] Care Team Providers Care Customer Relations Coordinator Name Role Phone Ida Auguste Primary Care Provider [phone] Allergies No known active allergies Medications SYMBICORT [...] on file Sexual Orientation Not on file Obstetrics History Last Filed Vital Signs Vital Sign Reading Time Taken Comments Blood Pressure 124/88 05/11/2024 1007 EDT Pulse 62 05/11/2024 1007 EDT Temperature - - Respiratory Rate 18 07/28/2022 0920 EST Oxygen Saturation 97% 05/11/2024 1007 EDT Inhaled Oxygen Concentration - - Weight 90.4 kg (199 lb 3.2 oz) 07/28/[address] Height 174.5 cm (5' 8.7) 07/28/2022 0920 EST Body Mass Index 29.67 07/28/2022 0920 EST Plan of Treatment Health Maintenance Due Date Last Done Comments Hepatitis C Screen 1965 Pneumococcal Immunization (1 of 2 - PCV) 1973 Hepatitis B Vaccine (1 of 3 - 19+ 3-dose series) 10/01 COVID-19 Vaccine ( season) 2024 Insurance MEDICAID [place] Advance Directives For more information, please contact: [phone] Documents on File Type Date Recorded Patient Wire Setter Expl anation Advance Directive 01/13/2023 11:33 Appt Of Health Care Agent-Signed Care Teams Customer Relations Coordinator Relationship Specialty Start Date End Date Ida Auguste [address] [place] [phone] PCP - General Family Medicine - Primary Care 05/11/24
--- OUTSIDE RECORDS SUMMARY | 2024-09-15 01:59 | XMS_ITS | Encounter Summary ---
Author Organization [facility] Address [address] [place] [address] Care Team Providers Care Textile Colorist Dyer Name Role Phone Unavailable Primary Care Provider Unavailabl e Reason for Visit * Reason Onset Date Comments Appointment Related 03/13/2023 Encounter Details Date Type Department Care Team (Late st Contact Info) Description 03/13/2023 Telephone [facility] Adult Neurology - [facility] [address] [place], [place] [phone] Ramona Urias DO [address] [place] [phone] Appointment Related Social History Tobacco Use Types [...] encounter Miscellaneous Notes * Telephone Encounter - Zayra Morris - 03/13/2023 1154 EDT Osvaldo called in this morning needing to check the date and time of his new patient visit with Dr. Urias. He is scheduled for Saturday, April 22, 2023 at 2:15 pm through video. Thank you documented in this encounter Plan of Treatment Not on file documented as of this encounter Visit Diagnoses Not on filedocumented in this encounter
--- OUTSIDE RECORDS SUMMARY | 2024-09-15 01:59 | XMS_ITS | Encounter Summary ---
[place] [address] Care Team Providers Care Research Technologist Name Role Phone Andre Mtz DO Primary Care Provider [phone] Reason for Referral * Consultation (Routine) - Authorized Specialty Diagnoses / Procedures Referred By Heather henderson Referred To Contact [facility] Diagnoses Other symptoms and signs involving the nervous system Andre Mtz DO [address] [place] [address] [facility] [place] [address] Referral ID Status Reason Start Date Expiration Date Visits Requested Visits Authorized [id number] Authorized Consult, Test & Treat 07/26/2024 07/26/2025 6 6 Encounter Details Date Type Department Care Team (Latest Contact Info) Description 08/17/2024 Transcribe Orders eDH Incoming Referrals [phone] Andre tMz DO [address] [place], [place] [phone] Other symptoms and signs involving the nervous system Social History Tobacco Use Types Packs/Day Years [...] 12:45 PM EST Office Visit Audiology at [address] [phone] Medina Robbins AUD [facility] [place] [address] 10/13/2024 1:40 PM EST Office Visit [place] [phone] Henry Cuadra III, MD [facility] [place] [address] Scheduled Referrals Name Type Priority Associated Diagnoses Orde r Schedule Referral to [facility] Center (Internal only) Outpatient Referral Routine Other symptoms and signs involving the nervous system Ordered: 08/17/2024 documented as of this encounter Visit Diagnoses Diagnosis Other symptoms and signs involving the nervous system documented in this encounter Care Teams Research Technologist Relationship Specialty Start Date End Date Andre Mtz DO [facility] [place] [address] PCP - General Family Medicine 08/17/24 documented as of this encounter
--- OUTSIDE RECORDS SUMMARY | 2024-09-15 01:59 | XMS_ITS | Encounter Summary ---
Author Organization [facility] [place] [address] Care Team Providers Care Bioinformatics Associate Name Role Phone Andre Mtz DO Primary Care Provider [phone] Encounter Details Date Type Department Care Team (Late st Contact Info) Description 09/07/2024 Telephone [place] [phone] Lorri Zambrano Social History Tobacco Use Types Packs/Day Years Used Date Smoking Tobacco: Never Assessed Sex and Gender Information Value Date Recorded Sex Assigned at Not on file Gender Identity Not on file Sexual Orientation Not on file documented as of this encounter Miscellaneous Notes * Telephone Encounter - Lorri Zambrano - 09/07/2024 1:05 PM EST Images from the original note were not included. From: Lorri Zambrano Sent: Saturday, September 07, 2024 1:04 PM To: '[email or web address]' <[email or web address]> Subject: Records Request - Neel Mello Importance: High ATTN: [facility] We have received a referral for the following patient: Name: Neel Mello Sex: Male : 1965 Dr. Henry Cuadra is In need of the following records to be sent so that they can be reviewed: Previous ENT records Please forward these records, along with any other ENT records [facility] including office notes, audiology reports and graphs, any operative reports, and any imaging and reports. Please forward these records to [facility] at [phone] If you are unable to fax the records, please send them via mail to: [facility] Department of Otolaryngology [address] [place] [address] Thank you, Lorri Zambrano Sr. Clinical [facility] Otolaryngology, Audiology and Oral & Maxillofacial Surgery [facility] IMPORTANT NOTICE REGARDING THIS MESSAGE This message is intended for the use of the person to whom it is addressed and may contain information that is privileged, confidential, and protected from disclosure under applicable law. If you arenot the intended recipient, your use of this message for any purpose is strictly prohibited. If youhave received this communication in error, please delete the message and notify the sender so that we may correct our records. * Telephone Encounter - Lorri Zambrano - 09/07/2024 1:05 PM EST Images from the original note were not included. From: Lorri Zambrano Sent: Saturday, September 07, 2024 1:05 PM To: '[email or web address]' <[email or web address]> Subject: Imaging Request - Neel Mello Importance: High ATTN: [facility] We have received a referral for the following patient: Name: Neel Mello Sex: Male : 1965 Dr. Henry Cuadra is In need of the following images and reports to be sent so that they can be reviewed: CT scan done Any other images done of the Head / neck/ chest area that may help in a treatment plan for the patient would be helpful as well including any swallow studies. Please push over images and fax over the reports to our image Library at [phone] If you cannot send the requested images and reports electronically, please mail STANDARD NEXT DAY via FEDEX NUMBER redacted to the address below: [facility] Attn: [facility] [address] [place] [address] Thank youLorri Sr. Clinical [facility] Otolaryngology, Audiology and Oral & Maxillofacial Surgery [facility] IMPORTANT NOTICE REGARDING THIS MESSAGE This message is intended for the use of the person to whom it is addressed and may contain information that is privileged, confidential, and protected from disclosure under applicable law. If you arenot the intended recipient, your use of this message for any purpose is strictly prohibited. If youhave received this communication in error, please delete the message and notify the sender so that we may correct our records. documented in this encounter Plan of Treatment Upcoming Encounters Date Type Department Care Team (Late st Contact Info) Description 10/13/2024 12:45 PM EST Office Visit Audiology at [address] [phone] Medina Robbins AUD [facility] [place] [address] 10/13/2024 1:40 PM EST Office [place] [phone] Henry Cuadra III [facility] [place] [address] documented as of this encounter Visit Diagnoses Not on filedocumented in this encounter Care Teams Bioinformatics Associate Relationship Specialty Start Date End Date Andre Mtz DO [address] [place] [address] PCP - General Family Medicine 08/17/24 documented as of this encounter
--- OUTSIDE RECORDS SUMMARY | 2024-09-15 01:59 | XMS_ITS | Encounter Summary ---
Author Organization [facility] [place] [address] Care Team Providers Care Yard Inspector Name Role Phone Andre Mtz DO Primary Care Provider [phone] Reason for Referral * Consultation (Routine) - Authorized Specialty Diagnoses / Procedures Referred By Heather henderson Referred To Contact Otolaryngology Diagnoses Otosclerosis of right ear Andre Mtz DO [address] [place] [address] [facility] [address] [place] [phone] Referral ID Status Reason Start Date Expiration Date Visits Requested Visits Authorized [id number] Authorized Consult, Test & Treat 07/26/2024 07/26/2025 6 6 Encounter Details Date Type Department Care Team (Latest Contact Info) Description 08/17/2024 Transcribe Orders eDH Incoming Referrals [phone] Andre Mtz DO [address] [place], [place] [phone] Otosclerosis of right ear Social History Tobacco Use Types Packs/Day Years [...] 12:45 PM EST Office Visit Audiology at [address] [phone] Medina Robbins AUD [facility] [place] [address] 10/13/2024 1:40 PM EST Office [place] [phone] Henry Cuadra III, MD [facility] [place] [address] Scheduled Referrals Name Type Priority Associated Diagnoses Orde r Schedule Referral to ENT Outpatient Referral Routine Otosclerosis of right ear Ordered: 08/17/2024 documented as of this encounter Visit Diagnoses Diagnosis Otosclerosis of right ear Otosclerosis, unspecified documented in this encounter Care Teams Yard Inspector Relationship Specialty Start Date End Date Andre Mtz DO [address] [place] [address] PCP - General Family Medicine 08/17/24 documented as of this encounter
--- OUTSIDE RECORDS SUMMARY | 2024-09-15 01:59 | XMS_ITS | Encounter Summary ---
Author Organization [facility] [place] [address] Care Team Providers Care Ladies Attendant Name Role Phone Unavailable Primary Care Provider Unavailabl e Reason for Referral * Consultation (Routine) - Authorized Specialty Diagnoses / Procedures Referred By Heather henderson Referred To Contact Otolaryngology Diagnoses Mixed conductive and sensorineural hearing loss, bilateral Juliane Barahona DO [address] [place] [address] [facility] [address] [place] [phone] Referral ID Status Reason Start Date Expiration Date Visits Requested Visits Authorized [id number] Authorized Consult, Test & Treat 07/06/2024 07/06/2025 1 1 Encounter Details Date Type Department Care Team (Latest Contact Info) Description 07/06/2024 Transcribe Orders eD Incoming Referrals [phone] Juliane Barahona DO [address] [place] [address] Mixed conductive and sensorineural hearing loss, bilateral Social History Tobacco Use Types Packs/Day Years [...] 12:45 PM EST Office Visit Audiology at [address] [phone] Medina Robbins AUD [facility] [place] [address] 10/13/2024 1:40 PM EST Office [place] [phone] Henry Cuadra III, MD [facility] [place] [address] Scheduled Referrals Name Type Priority Associated Diagnoses Orde r Schedule Referral to ENT Outpatient Referral Routine Mixed conductive and sensorineural hearing loss, bilateral Ordered: 07/06/2024 documented as of this encounter Visit Diagnoses Diagnosis Mixed conductive and sensorineural hearing loss, bilateral Mixed hearing loss, bilateral documented in this encounter
--- OUTSIDE RECORDS SUMMARY | 2024-09-15 01:59 | XMS_ITS | Encounter Summary ---
Author Organization [facility] [place] [address] Care Team Providers Care Towel Stretcher Name Role Phone Unavailable Primary Care Provider Unavailabl e Encounter Details Date Type Department Care Team (Late st Contact Info) Description 11/03/2023 12:05 AM EDT Ancillary Procedure Radiology Library at [facility] [place] [place] [phone] Andre Mtz, DO [address] [place], [place] [phone] Social History Tobacco Use Types Packs/Day Years [...] 12:45 PM EST Office Visit Audiology at [address] [phone] Medina Robbins AUD [facility] [place] [address] 10/13/2024 1:40 PM EST Office [place] [phone] Henry Cuadra III, MD [facility] [place] [address] documented as of this encounter Procedures Procedure Name Priority Date/Time Associated Diagnosis Comments FILM LIBRARY STORAGE ONLY MR SPINE Routine 11/03/2023 12:05 AM EDT documented in this encounter Results * Film Library- Storage Only MR Spine (11/03/2023 12:05 AM EDT) Narrative [facility] - 09/14/2024 3:35 AM EST This exam is auto-finalizing. It's purpose is for storage only. Andre Mtz DO [facility] FILM LIBRARY ORD ERABLES Performing Organization Address City/State/[facility] Co de Phone Number [place], [place] documented in this encounter Visit Diagnoses Not on filedocumented in this encounter
--- OUTSIDE RECORDS SUMMARY | 2024-09-15 01:59 | XMS_ITS | Encounter Summary ---
Author Organization [facility] Address [address] [place] [address] Care Team Providers Care Candy Counter Clerk Name Role Phone Unavailable Primary Care Provider Unavailabl e Reason for Visit * Reason Onset Date Comments Appointment Related 04/01/2023 Encounter Details Date Type Department Care Team (Late st Contact Info) Description 04/01/2023 Telephone [facility] Adult Neurology - [facility] [address] [place], [place] [phone] Ramona Urias DO [address] [place] [phone] Appointment Related Social History Tobacco Use Types [...] encounter Miscellaneous Notes * Telephone Encounter - Isa Marquez - 04/01/2023 1516 EDT Neel called to inquire about his upcoming appt with Ramona Urias- It was scheduled for 04/22/23 at 2:30pm- he stated he was going to be on the [facility] and advised he needs to be in [place] for the call Rescheduled appt to 05/20/23 at 2:30pm via [employer] Sent link to have him sign up for Digital Authentication Technologiest documented in this encounter Plan of Treatment Not on file documented as of this encounter Visit Diagnoses Not on filedocumented in this encounter
--- OUTSIDE RECORDS SUMMARY | 2024-09-15 01:59 | XMS_ITS | Encounter Summary ---
Author Organization [facility] Address [facility] [place] [address] Care Team Providers Care Bundle Collector Name Role Phone Unavailable Primary Care Provider Unavailabl e Encounter Details Date Type Department Care Team (Late st Contact Info) Description 11/03/2023 Ancillary Procedure Radiology Library [place] [phone] Andre Mtz, DO [address] [place], [place] [phone] Social History Tobacco Use Types Packs/Day Years [...] 12:45 PM EST Office Visit Audiology at [address] [phone] Medina Robbins AUD [facility] [place] [address] 10/13/2024 1:40 PM EST Office Visit [place] [phone] Henry Cuadra III, MD [facility] [place] [address] documented as of this encounter Procedures Procedure Name Priority Date/Time Associated Diagnosis Comments FILM LIBRARY STORAGE ONLY DX SPINE Routine 11/03/2023 12:00 AM EDT documented in this encounter Results * Film Library- Storage Only DX Spine (11/03/2023 12:00 AM EDT) Narrative DILSHAD TREVIÑO - 09/14/2024 3:32 AM EST This exam is auto-finalizing. It's purpose is for storage only. Andre Mtz DO [facility] [place]M LIBRARY ORD ERABLES Performing Organization Address City/State/[facility] Co de Phone Number [place], [place] documented in this encounter Visit Diagnoses Not on filedocumented in this encounter
--- OUTSIDE RECORDS SUMMARY | 2024-09-15 01:59 | XMS_ITS | Encounter Summary ---
Author Organization [facility] Address [address] [place] [address] Care Team Providers Care Coreroom Foundry Laborer Name Role Phone Ida Auguste Wendy Primary Care Provider [phone] Reason for Visit * Vascular Lab (Routine) - Authorization Not Required Specialty Diagnoses / Procedures Referred By Heather henderson Referred To Contact Diagnoses Carotid stenosis Smoking history Procedures US CAROTID-VERTEBRAL DUPLEX Eric Piedra MD Phone: tel: fax: [facility] Vascular Lab Referral ID Status Reason Start Date Expiration Date Visits Requested Visits Authorized [id number] Authorization Not Required 04/04/2024 1 1 Encounter Details Date Type Department Care Team (Latest Contact Info) Description 05/11/2024 10:00 EDT Ancillary Procedure Vascular Surgery and Endovascular Therapy - [address] [phone] Carotid stenosis; Smoking history Social History Tobacco Use Types Packs/Day Years [...] on file documented as of this encounter Functional Status * Because of [...] 04/04/2024 10:45 EDT documented in this encounter Plan of Treatment Not on file documented as of this encounter Procedures Procedure Name Priority Date/Time Associated Diagnosis Comments US CAROTID-VERTEBRAL DUPLEX Routine 05/11/2024 10:05 EDT Carotid stenosis Smoking history documented in this encounter Results * US CAROTID-VERTEBRAL DUPLEX BILATERAL (05/11/2024 10:05 EDT) Left CCA dist sys 53 cm/s MERGE CARDIO Left CCA dist valiente 29 cm/s MERGE CARDIO Left CCA prox sys 69 cm/s MERGE CARDIO Left CCA prox valiente 38 cm/s MERGE CARDIO Left ICA dist sys -66 cm/s MERGE CARDIO Left ICA dist valiente -35 cm/s MERGE CARDIO Left ICA mid sys -67 cm/s MERGE CARDIO Left ICA mid valiente -34 cm/s MERGE CARDIO Left ICA prox sys -76 cm/s MERGE CARDIO Left ICA prox valiente -36 cm/s MERGE CARDIO Left ECA sys -302 cm/s MERGE CARDIO LEFT EXTERNAL CAROTID ARTERY D -83 cm/s MERGE CARDIO Left subclavian sys 137 cm/s MERGE CARDIO Left vertebral sys 55 cm/s MERGE CARDIO LEFT VERTEBRAL ARTERY D 20 cm/s MERGE CARDIO Left prox ICA/distal CCA sys ratio 1.4 MERGE CARDIO Right cca dist sys 29 cm/s MERGE CARDIO Right CCA dist valiente 11 cm/s MERGE CARDIO Right CCA prox sys 56 cm/s MERGE CARDIO Right CCA prox valiente 10 cm/s MERGE CARDIO Right ICA dist sys 0 cm/s MERGE CARDIO Right ICA prox sys 0 cm/s MERGE CARDIO Right eca sys -84 cm/s MERGE CARDIO RIGHT EXTERNAL CAROTID ARTERY D -21 cm/s MERGE CARDIO Right subclavian sys 114 cm/s MERGE CARDIO Right vertebral sys 35 cm/s MERGE CARDIO RIGHT VERTEBRAL ARTERY D 17 cm/s MERGE CARDIO Right ICA prox valiente 0 cm/s MERGE CARDIO Right ICA dist valiente 0 cm/s MERGE CARDIO Anatomical Region Laterality Modality Vascular Ultrasound Narrative 05/12/2024 12:14 EDT ?The right proximal internal carotid artery was occluded. ?The left proximal internal carotid artery stent was widely patent. ?The bilateral vertebral arteries demonstrated antegrade flow. Right Carotid The right proximal internal carotid artery was occluded. The right vertebral artery had antegrade flow. Left Carotid The left proximal internal carotid artery stent was widely patent. The left vertebral artery had antegrade flow. Cerebrovascular HPI and Indications Known right ICA occlusion. Left ICA stent Cerebrovascular Past Medical History Hyperlipidemia, Hypertension and Tobacco use. us Eric Piedra MD [facility] VASCULAR ORDERABLES F inal Result documented in this encounter Visit Diagnoses Diagnosis Carotid stenosis Occlusion and stenosis of carotid artery without mention of cerebral infarction Smoking history Personal history of tobacco use, presenting hazards to health documented in this encounter Care Teams Coreroom Foundry Laborer Relationship Specialty Start Date End Date Ida Auguste [address] [place] [phone] PCP - General Family Medicine - Primary Care 05/11/24 documented as of this encounter
--- OUTSIDE RECORDS SUMMARY | 2024-09-15 01:59 | XMS_ITS | Encounter Summary ---
Author Organization [facility] Address [address] [place] [address] Care Team Providers Care Forming Machine Operator Name Role Phone Unavailable Primary Care Provider Unavailabl e Reason for Visit * Reason Comments New Patient Visit Right carotid and st enosis in left carotid stent.and clearance for future hip surgery * Consult (Routine) - Receiving Office to Obtain Authorization Specialty Diagnoses / Procedures Referred By Heather henderson Referred To Contact Diagnoses Occlusion and stenosis of bilateral carotid arteries Tabitha Villarreal MD [address] [place] [address] Phone: tel: fax: Vascular Surgery and Endovascular Therapy - [address] [address] Phone: tel: fax: Referral ID Status Reason Start Date Expiration Date Visits Requested Visits Authorized [id number] Receiving Office to Obtain Authorization 1 1 Encounter Details Date Type Department Care Team (Late st Contact Info) Description 07/28/2022 9:30 EST Office Visit Vascular Surgery and Endovascular Therapy - [address] [phone] Eric Piedra MD [address] [facility], [address] [place] [phone] Stenosis of right carotid artery (Primary Dx) Social History Tobacco Use Types Packs/Day Years [...] Sign Reading Time Taken Comments Blood Pressure 140/86 07/28/2022919 EST Pulse 99 07/28/2022919 EST Temperature - - Respiratory Rate 18 07/28/2022919 EST Oxygen Saturation 100% 07/28/2022919 EST Inhaled Oxygen Concentration - - Weight 90.4 kg (199 lb 3.2 oz) 07/28/2022919 E ST Height 174.5 cm (5' 8.7) 07/28/2022919 EST Body Mass Index 29.67 07/28/2022919 EST documented in this encounter Progress Notes * Eric Piedra MD - 07/28/2022929 EST This office note has been dictated. Eric Piedra MD 07/28/2022 9:42 Mr Mello is a 56-year-old gentleman who tells us that about 4 years ago, he had some TIAs, and workup of the right hemispheric TIAs was consistent for a complete right internal carotid artery occlusion, as well as a tight stenosis on the left side. Because of the symptoms he was having at the time, he had a stent placed on his left side. It is not clear to me why this was not treated surgically. In any case, he is here today in the office. He is not on any antiplatelets and he is here for evaluation. His past medical history is significant for cigarette smoking, hypertension, hypercholesterolemia. He does not report diabetes, no strokes, no heart attacks, no heart failure, no abnormal heartbeat, no emphysema, no heart bypasses, no kidney failure. His medication list is inclusive of hydrochlorothiazide, Cozaar, Crestor. He does not report being on an aspirin a day. Review of systems is significant for some occasional shortness of breath. Social history is significant for cigarette smoking. He smokes a half to a pack a day, has for about 40 years. His family history is significant for stroke, heart disease, but no aneurysms. He is not allergic to any medications. He does not take aspirin. He does not take Plavix. On physical exam, he is 5 feet 10 inches, 200 pounds. Could not appreciate carotid bruits. Lungs were clear. Heart was regular with occasional irregular beats. Belly was obese, no pulsatile masses. He had good groin pulses, good popliteal pulses, and palpable posterior tibial pulses. Our thoughts are as follows: 1. In terms of risk avoidance for stroke and heart attacks, by all means Mr Mello should be on aspirin, as well as statins. 2. For any future operations, he should remain on aspirin throughout the perioperative period and steps should be made to keep his pressure over 100 to 120 mmHg. With his extracranial anatomy, there is really no removing the risk of stroke, but him being on aspirin throughout the time of surgery and keeping his pressure up are 2 steps that will help to ameliorate that. documented in this encounter Plan of Treatment Not on file documented as of this encounter Visit Diagnoses Diagnosis Stenosis of right carotid artery- Primary Occlusion and stenosis of carotid artery without mention of cerebral infarction documented in this encounter Historical Medications * This list may reflect changes made after this encounter. loperamide (IMODIUM) 2 mg capsule TAKE 1 CAPSULE BY MOUTH EVERY 2 HOURS NEEDED FOR DIARRHEA. NOT MORE THAN 16MG PER DAY 07/10/2022 rosuvastatin (CRESTOR) 5 mg tablet Take 1 Tablet by mouth every evening. 07/10/2022 losartan (COZAAR) 50 mg tablet Take 1 Tablet by mouth. 06/25/2022 hydroCHLOROthiazi de (MICROZIDE) 12.5 mg capsule Take by mouth daily. 06/12/2022 SYMBICORT 160-4.5 mcg/actuation HFA aerosol inhaler inhaler 07/23/2022 hydroCHLOROthiazi de (HYDRODIURIL) 25 mg tablet Take 25 mg by mouth daily. 04/04/2024 losartan potassium (LOSARTAN ORAL) Take by mouth. 04/04/2024 added in this encounter
--- OUTSIDE RECORDS SUMMARY | 2024-09-15 01:59 | XMS_ITS | Encounter Summary ---
Author Organization [facility] Address [address] [place] [address] Care Team Providers Care Machine Heddle Cleaner Name Role Phone Ida Auguste Primary Care Provider [phone] Reason for Referral * Vascular Lab (Routine/Next Available) - Authorization Not Required Specialty Diagnoses / Procedures Referred By Contac t Referred To Contact Diagnoses DORIS (cerebral atherosclerosis) Procedures US CAROTID-VERTEBRAL DUPLEX Eric Piedra MD Phone: tel: fax: [facility] Vascular Lab Referral ID Status Reason Start Date Expiration Date Visits Requested Visits Authorized [id number] Authorization Not Required 05/11/2024 1 1 * Vascular Lab (Routine) - Authorization Not Required Specialty Diagnoses / Procedures Referred By Contac t Referred To Contact Diagnoses Juxtarenal abdominal aortic aneurysm (AAA) without rupture ([facility]-CMS) Procedures US ABDOMINAL AORTA-ILIAC DUPLEX Eric Piedra MD Phone: tel: fax: [facility] Vascular Lab Referral ID Status Reason Start Date Expiration Date Visits Requested Visits Authorized [id number] Authorization Not Required 05/11/2024 1 1 Reason for Visit * Reason Comments Follow-up Encounter Details Date Type Department Care Team (Late st Contact Info) Description 05/11/2024 10:45 EDT Office Visit Vascular Surgery and Endovascular Therapy - [address] [address] Eric Piedra MD [address] [place] [address] [address] [place] [address] Juxtarenal abdominal aortic aneurysm (AAA) without rupture (HCC-CMS) (Primary Dx); DORIS (cerebral atherosclerosis) Social History Tobacco Use [...] 1007 EDT Temperature - - Respiratory Rate - - Oxygen Saturation 97% 05/11/2024 1007 EDT Inhaled [...] Progress Notes * Eric Piedra MD - 05/11/2024 1045 EDT Osvaldo is here today in the office, a 58-year-old gentleman who has known right internal carotid artery occlusion and had a stent placed elsewhere. He is here today in the office for some followup study. He was initially seen and did not really have any good data on him. His duplex today shows a widely patent left carotid stent. His right is occluded and known to be occluded. His aorta measures about 3.5 cm. We talked to Osvaldo today. He understands. We will continue to follow these on a yearly basis. He cyrus antiplatelets. He is on statins. Otherwise, well treated medically. We will see him back in a year. This office note has been dictated. Eric Piedra MD 05/11/2024 10:30 This office note has been dictated. Eric Piedra MD 05/11/2024 10:30 documented in this encounter Plan of Treatment Scheduled Orders Name Type Priority Associated Diagnoses Orde r Schedule US ABDOMINAL AORTA-ILIAC DUPLEX Vascular Ultrasound Routine Juxtarenal abdominal aortic aneurysm (AAA) without rupture (HCC-CMS) Expected: 05/11/2025 (Approximate), Expires: 11/09/2025 US CAROTID-VERTEBRAL DUPLEX Vascular Ultrasound Routine DORIS (cerebral atherosclerosis) Expected: 05/11/2025 (Approximate) documented as of this encounter Visit Diagnoses Diagnosis Juxtarenal abdominal aortic aneurysm (AAA) without rupture (HCC-CMS)- Primary DORIS (cerebral atherosclerosis) Cerebral atherosclerosis documented in this encounter Care Teams Machine Heddle Cleaner Relationship Specialty Start Date End Date Ida Auguste [address] [place] [phone] PCP - General Family Medicine - Primary Care 05/11/24 documented as of this encounter
--- OUTSIDE RECORDS SUMMARY | 2024-09-15 01:59 | XMS_ITS | Encounter Summary ---
Author Organization [facility] [place] [address] Care Team Providers Care Rn Case Management Name Role Phone Unavailable Primary Care Provider Unavailabl e Encounter Details Date Type Department Care Team (Late st Contact Info) Description 05/18/2024 Ancillary Procedure Radiology Library at [facility] [place] [phone] Andre Mtz, DO [address] [place], [place] [phone] Social History Tobacco Use Types Packs/Day Years [...] 12:45 PM EST Office Visit Audiology at [address] [phone] Medina Robbins AUD [facility] [place] [address] 10/13/2024 1:40 PM EST Office [place] [address] Henry Cuadra III, MD [facility] [place] [address] documented as of this encounter Procedures Procedure Name Priority Date/Time Associated Diagnosis Comments FILM LIBRARY STORAGE ONLY CT HEAD Routine 05/18/2024 12:00 AM EDT documented in this encounter Results * Film Library- Storage Only CT Head (05/18/2024 12:00 AM EDT) Narrative DILSHAD TREVIÑO - 09/07/2024 4:08 PM EST This exam is auto-finalizing. It's purpose is for storage only. Andre Mtz DO [facility] [place]M LIBRARY ORD ERABLES Performing Organization Address City/State/[facility] Co de Phone Number HU[place], [place] documented in this encounter Visit Diagnoses Not on filedocumented in this encounter
--- OUTSIDE RECORDS SUMMARY | 2024-09-15 01:59 | XMS_ITS | Encounter Summary ---
Author Organization [facility] [place] [address] Care Team Providers Care Data Compiler Name Role Phone Unavailable Primary Care Provider Unavailabl e Encounter Details Date Type Department Care Team (Late st Contact Info) Description 03/23/2023 Ancillary Procedure Radiology Library at [place] [phone] Andre Mtz, DO [address] [place], [place] [phone] Social History Tobacco Use Types Packs/Day Years [...] 12:45 PM EST Office Visit Audiology at [address] [phone] Medina Robbins AUD [facility] [place] [address] 10/13/2024 1:40 PM EST Office [place] [address] Henry Cuadra III, MD [facility] [place] [address] documented as of this encounter Procedures Procedure Name Priority Date/Time Associated Diagnosis Comments FILM LIBRARY STORAGE ONLY CT HEAD Routine 03/23/2023 12:00 AM EDT documented in this encounter Results * Film Library- Storage Only CT Head (03/23/2023 12:00 AM EDT) Narrative DILSHAD TREVIÑO - 09/14/2024 3:39 AM EST This exam is auto-finalizing. It's purpose is for storage only. Andre Mtz DO [facility] [place] FILM LIBRARY ORD ERABLES Performing Organization Address City/State/[facility] Co de Phone Number [place], [place] documented in this encounter Visit Diagnoses Not on filedocumented in this encounter
--- OUTSIDE RECORDS SUMMARY | 2024-09-15 01:59 | XMS_ITS | Encounter Summary ---
Author Organization [facility] Address [facility] [place] [address] Care Team Providers Care Aesthetics Instructor Name Role Phone Unavailable Primary Care Provider Unavailabl e Encounter Details Date Type Department Care Team (Late st Contact Info) Description 11/04/2023 Ancillary Procedure Radiology Library at [facility] [place] [phone] Andre Mtz, DO [address] [place], [place] [phone] Social History Tobacco Use Types Packs/Day Years [...] 12:45 PM EST Office Visit Audiology at [address] [phone] Medina Robbins AUD [facility] [place] [address] 10/13/2024 1:40 PM EST Office [place] [phone] Henry Cuadra III, MD [facility] [place] [address] documented as of this encounter Procedures Procedure Name Priority Date/Time Associated Diagnosis Comments FILM LIBRARY STORAGE ONLY DX SPINE Routine 11/04/2023 12:00 AM EDT documented in this encounter Results * Film Library- Storage Only DX Spine (11/04/2023 12:00 AM EDT) Narrative DILSHAD TREVIÑO - 09/14/2024 3:47 AM EST This exam is auto-finalizing. It's purpose is for storage only. Andre Mtz DO [facility] FILM LIBRARY ORD ERABLES Performing Organization Address City/State/[facility] Co de Phone Number HU[place], [place] documented in this encounter Visit Diagnoses Not on filedocumented in this encounter
--- OUTSIDE RECORDS SUMMARY | 2024-09-15 01:59 | XMS_ITS | Clinical Summary ---
Author Organization [facility] [place] [address] Care Team Providers Care Wood Scrap Handler Name Role Phone Andre Mtz DO Primary Care Provider [phone] Encounters Date Type Department Care Team Description 09/07/2024 Telephone [place] [phone] Lorri Zambrano 08/17/2024 Transcribe Orders eD Incoming Referrals [phone] Andre Mtz, DO Otosclerosis of right ear 08/17/2024 Transcribe Orders eDH Incoming Referrals [phone] Andre Mtz, DO Other symptoms and signs involving the nervous system 07/06/2024 Transcribe Orders eD Incoming Referrals [phone] Juliane Barahona, DO Mixed conductive and sensorineural hearing loss, bilateral from Last 3 Months Social History Tobacco Use Types Packs/Day Years Used Date Smoking Tobacco: Never Assessed Sex and Gender Information Value Date Recorded Sex Assigned at Not on file Gender Identity Not on file Sexual Orientation Not on file Plan of Treatment Upcoming Encounters Date Type Department Care Team (Late st Contact Info) Description 10/13/2024 12:45 PM EST Office Visit Audiology at [address] [phone] Medina Robbins AUD [facility] [place] [address] 10/13/2024 1:40 PM EST Office [place] [address] Henry Cuadra III, MD [facility] [place] [address] Health Maintenance Due Date Last Done Comments CT Colonography 1967 Colonoscopy 1967 Colorectal Cancer Screening 1967 FIT DNA 1967 FIT 1967 Sigmoidoscopy (10 year) with FIT yearly 1967 Sigmoidoscopy 1967 HIV screen 1985 Hepatitis C Screening 1985 Lipid Screening 1985 Hepatitis B vaccine (0-59 yrs) (1) 1986 Tetanus/Diphtheria/Pertussis Vaccines (1 - Tdap) 10/01 Pneumoccocal Vaccine: 50+ (1 of 1 - PCV) 2017 Zoster vaccine (1 of 2) 2017 Advance Directive 2022 Covid-19 Vaccine (1 - season) 2024 Influenza (Flu) vaccine (1 o f 1 - Influenza standard series) 04/10/2024 Care Teams Wood Scrap Handler Relationship Specialty Start Date End Date Andre Mtz DO [address] [place] [address] PCP - General Family Medicine 08/17/24
--- OUTSIDE RECORDS SUMMARY | 2024-09-15 01:59 | XMS_ITS | Encounter Summary ---
Author Organization [facility] Address [facility] [place] [address] Care Team Providers Care Project Assistant Name Role Phone Unavailable Primary Care Provider Unavailabl e Encounter Details Date Type Department Care Team (Late st Contact Info) Description 06/25/2022 Ancillary Procedure Radiology Library at [facility] [phone] Andre Mtz, DO [address] [place], [place] [phone] Social History Tobacco Use Types Packs/Day Years [...] 12:45 PM EST Office Visit Audiology at [address] [phone] Medina Robbins AUD [facility] AUDIOLOGHeri [address] 10/13/2024 1:40 PM EST Office [place] [address] Henry Cuadra III, MD [facility] OTOLARYNGOLOGHeri [address] documented as of this encounter Procedures Procedure Name Priority Date/Time Associated Diagnosis Comments FILM LIBRARY STORAGE ONLY DX SPINE Routine 06/25/2022 12:00 AM EST documented in this encounter Results * Film Library- Storage Only DX Spine (06/25/2022 12:00 AM EST) Narrative DILSHAD TREVIÑO - 09/14/2024 3:47 AM EST This exam is auto-finalizing. It's purpose is for storage only. Andre Mtz DO [facility] [place] FILM LIBRARY ORD ERABLES Performing Organization Address City/State/[facility] Co de Phone Number DILSHAD TREVIÑO [place], [place] documented in this encounter Visit Diagnoses Not on filedocumented in this encounter
--- OUTSIDE RECORDS SUMMARY | 2024-09-15 01:59 | XMS_ITS | Encounter Summary ---
Author Organization [facility] [place] [address] Care Team Providers Care Exchange Clerk Name Role Phone Unavailable Primary Care Provider Unavailabl e Encounter Details Date Type Department Care Team (Late st Contact Info) Description 03/05/2024 Ancillary Procedure Radiology Library at [facility] [place] [phone] Henry Cuadra III, MD [facility] [place] [address] Social History Tobacco Use Types Packs/Day Years [...] 12:45 PM EST Office Visit Audiology at [address] [phone] Medina Robbins AUD [facility] [place] [address] 10/13/2024 1:40 PM EST Office [place] [phone] Henry Cuadra III, MD [facility] [place] [address] documented as of this encounter Procedures Procedure Name Priority Date/Time Associated Diagnosis Comments FILM LIBRARY STORAGE ONLY CT CHEST Routine 03/05/2024 12:00 AM EDT documented in this encounter Results * Film Library- Storage Only CT Chest (03/05/2024 12:00 AM EDT) Narrative DILSHAD TREVIÑO - 09/07/2024 8:19 PM EST This exam is auto-finalizing. It's purpose is for storage only. Henry Cuadra III, MD [facility] FILM LIBRARY ORDERABLES Performing Organization Address City/State/[facility] Co de Phone Number [place], [place] documented in this encounter Visit Diagnoses Not on filedocumented in this encounter
--- OUTSIDE RECORDS SUMMARY | 2024-09-15 01:59 | XMS_ITS | Encounter Summary ---
Author Organization Formerly [facility] [place] [address] Care Team Providers Care Sleeve Fixer Name Role Phone Unavailable Primary Care Provider Unavailabl e Encounter Details Date Type Department Care Team (Late st Contact Info) Description 02/15/2024 Ancillary Procedure Radiology Library [place] [facility] [place] [phone] Henry Cuadra III, MD [facility] [place] [address] Social History Tobacco Use Types Packs/Day Years [...] 12:45 PM EST Office Visit Audiology at [address] [phone] Medina Robbins AUD [facility] [place] [address] 10/13/2024 1:40 PM EST Office [place] [phone] Henry Cuadra III, MD [facility] [place] [address] documented as of this encounter Procedures Procedure Name Priority Date/Time Associated Diagnosis Comments FILM LIBRARY STORAGE ONLY ULTRASOUND STUDY Routine 02/15/2024 12:00 AM EDT documented in this encounter Results * Film Library- Storage Only Ultrasound Study (02/15/2024 12:00 AM EDT) Narrative DILSHAD TREVIÑO - 09/08/2024 11:48 AM EST This exam is auto-finalizing. It's purpose is for storage only. Henry Cuadra III, MD [facility] FILM LIBRARY ORDERABLES Performing Organization Address City/State/[facility] Co de Phone Number [place], [place] documented in this encounter Visit Diagnoses Not on filedocumented in this encounter
--- OUTSIDE RECORDS SUMMARY | 2024-09-15 01:59 | XMS_ITS | Encounter Summary ---
Author Organization [facility] Address [address] [place] [id number] Care Team Providers Care Game Master Name Role Phone Ida Auguste Wendy Primary Care Provider Reason for Visit * Vascular Lab (Routine) - Authorization Not Required Specialty Diagnoses / Procedures Referred By Heather henderson Referred To Contact Diagnoses Smoking history AAA (abdominal aortic aneurysm) ([facility]) Procedures US ABDOMINAL AORTA-ILIAC DUPLEX US ABDOMINAL AORTA-ILIAC DUPLEX Eric Piedra MD Phone: tel: fax: [facility] Vascular Lab Referral ID Status Reason Start Date Expiration Date Visits Requested Visits Authorized [id number] Authorization Not Required 04/04/2024 1 1 Encounter Details Date Type Department Care Team (Latest Contact Info) Description 05/11/2024 9:00 EDT Ancillary Procedure Vascular Surgery and Endovascular Therapy - [address] [address] Smoking history; AAA (abdominal aortic aneurysm) ([facility]) Social History Tobacco Use Types Packs/Day Years [...] Name Priority Date/Time Associated Diagnosis Comments US ABDOMINAL AORTA-ILIAC DUPLEX COMPLETE Routine 05/11/2024 10:08 EDT Smoking history AAA (abdominal aortic aneurysm) ([facility]) documented in this encounter Results * US ABDOMINAL AORTA-ILIAC DUPLEX COMPLETE (05/11/2024 10:08 EDT) Abdominal dist aorta AP 3.83 cm [facility] Abdominal mid aorta AP 2.36 cm [facility] Abdominal prox aorta AP 2.98 cm [facility] Abdominal lt com iliac sergio 107 cm/s [facility] Abdominal rt com iliac sergio 198 cm/s [facility] Abdominal prox aorta sergio 50 cm/s [facility] Abdominal mid aorta sergio 61 cm/s [facility] Abdominal lt ext iliac sergio 156 cm/s [facility] Abdominal rt ext iliac sergio 95 cm/s [facility] Abdominal dist aorta sergio -36 cm/s [facility] Abdominal lt com iliac AP 1.57 cm [facility] Abdominal rt com iliac AP 1.80 cm [facility]IO Anatomical Region Laterality Modality Vascular Ultrasound Narrative 05/12/2024 12:14 EDT ?Infrarenal aortic aneurysm measuring 3.83cm. ?No evidence of iliac or popliteal artery aneurysm. Arterial HPI and Indications Follow up AAA. Arterial Past Medical History Hyperlipidemia, Hypertension and Tobacco use. Eric Piedra MD [facility] VASCULAR ORDERABLES F inal Result documented in this encounter Visit Diagnoses Diagnosis Smoking history Personal history of tobacco use, presenting hazards to health AAA (abdominal aortic aneurysm) ([facility]) Abdominal aneurysm without mention of rupture documented in this encounter Care Teams Game Master Relationship Specialty Start Date End Date Ida Auguste [address] [place] [phone] PCP - General Family Medicine - Primary Care 05/11/24 documented as of this encounter
--- OUTSIDE RECORDS SUMMARY | 2024-09-15 01:59 | XMS_ITS | Encounter Summary ---
Author Organization [facility] [place] [address] Care Team Providers Care Chromosomal Disorders Counselor Name Role Phone Unavailable Primary Care Provider Unavailabl e Encounter Details Date Type Department Care Team (Late st Contact Info) Description 07/01/2022 Ancillary Procedure Radiology Library at [facility] [place] [phone] Henry Cuadra III, MD [facility] [place] [address] Social History Tobacco Use Types Packs/Day Years [...] PM EST Office Visit Audiology at [address] [phone] Medina Robbins AUD [facility] [place] [address] 10/13/2024 1:40 PM EST Office [place] [phone] Henry Cuadra III, MD [facility] [place] [address] documented as of this encounter Procedures Procedure Name Priority Date/Time Associated Diagnosis Comments FILM LIBRARY STORAGE ONLY ULTRASOUND STUDY Routine 07/01/2022 12:00 AM EST documented in this encounter Results * Film Library- Storage Only Ultrasound Study (07/01/2022 12:00 AM EST) Narrative DILSHAD TREVIÑO - 09/07/2024 8:25 PM EST This exam is auto-finalizing. It's purpose is for storage only. Henry Cuadra III, MD IMS[facility]jeev FILM LIBRARY ORDERABLES Performing Organization Address City/State/[facility] Co de Phone Number [place], [place] documented in this encounter Visit Diagnoses Not on filedocumented in this encounter
[2024-09-15 14:35] LABS: ALT 54 U/L (16-63); AST 32 U/L (15-37); Albumin 3.3 g/dL (3.4-5.0); Alkaline Phosphatase 67 U/L (46-116); Anion Gap 4.8 mmol/L (3-11); BUN 22 mg/dL (7-18); Bilirubin, Total 0.57 mg/dL (0.2-1.0); CO2 33.2 mmol/L (21.0-32.0); Calcium 9.5 mg/dL (8.5-10.1); Chloride 102 mmol/L (98-107); Estimated GFR 88.33 (mL/min/1.73m2); Glucose 95 mg/dL (74-106); Potassium 4.2 mmol/L (3.5-5.1); Sodium 140 mmol/L (136-145); TSH (W/Ref FT4) 1.07 uIU/mL (0.36-3.74); Total Protein 7.6 g/dL (6.4-8.2)
[2024-09-15 15:20] LABS: Vitamin B12 389 pg/mL (193-986)
== END 2024-09-15 01:52 | disposition home or self-care (01) ==
LOC: LBO 01:51
PROVIDERS: PCP Family Medicine; Referring Provider Family Medicine; Visit Provider Family Medicine
DX: G62.9 Polyneuropathy, unspecified (principal)
CPT/HCPCS: 36415; 80053; 82607; 84443

== ENCOUNTER 2024-09-20 02:04 | Outpatient (CLI) | payer MEDICAID, SELFPAY ==
--- NOTE | 2024-09-20 07:30 | DI.RAD_ITS ---
Exam(s) XR CERVICAL SPINE COMP 4-5V EXAM: XR CERVICAL SPINE COMP 4-5V CLINICAL HISTORY: Chronic neck pain,CERVICALGIA,M54.2. TECHNIQUE: 2D digital imaging was performed. Five views were performed. COMPARISON: No exams were available for comparison FINDINGS: BONES: No fracture or destructive lesion. Vertebral bodies are unremarkable. Facet degenerative tyrone nges are present greater on the left causing multilevel bilateral neural foraminal narrowing. DISKS: Moderate to severe narrowing of the C6-7 disc space. Endplate osteophytes. The remaining int ervertebral disc spaces are maintained. ALIGNMENT: Cervical spinal alignment is within normal limits. The odontoid and atlantoaxial articulat ions are normal. SOFT TISSUE: Large stent noted in the left sided neck, presumably within the carotid artery. The tri g apices are clear. IMPRESSION: Degenerative changes, greatest at C6-7. DATA REPOSITORY: RADIATION DOSE DELIVERED:
== END 2024-09-20 02:24 ==
PROVIDERS: PCP Family Medicine; Visit Provider Family Medicine
DX: M48.02 Spinal stenosis, cervical region (principal); M99.61 Osseous and subluxation stenosis of intervertebral foramina of cervical region
CPT/HCPCS: 72050

== ENCOUNTER 2024-10-04 08:12 | Outpatient (CLI) | payer MEDICAID, SELFPAY ==
--- NOTE | 2024-10-04 11:00 | DI.MRI_ITS ---
Exam(s) MR CERVICAL SPINE WO EXAM: MR CERVICAL SPINE WO CLINICAL HISTORY: Chronic pain, degenarative changes seen on xray,cervicalgia,m54.2 TECHNIQUE: Multiplanar multisequence MRI of the cervical spine was performed without intravenous con trast. COMPARISON: CR XR CERVICAL SPINE COMP 4-5V from 09/20/2024 FINDINGS: BONES: Vertebral body heights are maintained. Alignment is normal. Bone marrow signal intensity is wi thin normal limits. CERVICAL CORD: Craniovertebral junction is unremarkable. The cervical cord shows normal signal intens ity. There is mild thinning of the AP dimension of the cervical cord at the C6-7 level, at the level of a disc herniation. SOFT TISSUES: Unremarkable. C2-3: No disc herniation or bulge is identified. Facet degenerative changes and small uncovertebral osteophytes cause bilateral neural foraminal narrowing. 6 millimeter facet joint cyst projects into the central canal however there is no significant central canal stenosis. C3-4: No disc herniation or bulge is identified.Facet degenerative changes and small uncovertebral os teophytes cause bilateral neural foraminal narrowing. No significant central canal stenosis. C4-5: No disc herniation or bulge is identified. Facet degenerative changes and small uncovertebral o steophytes cause mild bilateral neural foraminal narrowing, greater on the right. No significant denis tral canal stenosis. C5-6: Mild broad-based disc osteophytes..Facet degenerative changes and small uncovertebral osteophyt es cause bilateral neural foraminal narrowing. No significant central canal stenosis. C6-7: Mild loss of disc height. Prominent circumferentially projecting osteophytes. Superimposed di sc protrusion eccentric toward the left which appears to impinge on the cervical cord. Moderate cent ral canal stenosis. Bilateral neural foraminal narrowing. C7-T1: Disc bulging. No evidence of neural foraminal narrowing. No significant central canal stenosi s. IMPRESSION: Degenerative disc changes and facet degenerative changes C6-7 cause bilateral neural foraminal narrow ing. There is a superimposed left paracentral disc protrusion causing impingement on the cord and mo derate central canal stenosis. Bilateral neural foraminal narrowing multiple levels noted secondary to combination of uncovertebral osteophytes and facet spurring. DATA REPOSITORY:
== END 2024-10-04 08:32 ==
LOC: DI 08:13
PROVIDERS: PCP Family Medicine; Visit Provider Family Medicine
DX: M50.023 Cervical disc disorder at C6-C7 level with myelopathy (principal); M99.61 Osseous and subluxation stenosis of intervertebral foramina of cervical region
CPT/HCPCS: 72141

== ENCOUNTER 2024-10-24 15:02 | Outpatient (CLI) | payer MEDICAID, SELFPAY ==
--- NOTE | 2024-10-24 14:30 | DI.RAD_ITS ---
Exam(s) XR STANDING ALIGNMENT EXAM: XR STANDING ALIGNMENT CLINICAL HISTORY: L knee pain. TECHNIQUE: 2D digital imaging was performed. Standing AP views were performed from the pelvis throu gh the ankles. COMPARISON: CR XR KNEE LT 3V AP,LAT,SAUL from 10/24/2024 FINDINGS: BONES: No acute fracture is present. No bony destructive lesion is seen. Enthesophytes at the iliac wings. Leg length discrepancy: No significant overall leg length discrepancy. JOINTS: Knees: The joint spaces are maintained. There is minimal periarticular spurring on the left. The ankle joints are unremarkable. Hips: There is a left hip prosthesis. No abnormal surrounding bony lucencies. The right hip joint s pace is maintained. There is acetabular spurring. SOFT TISSUE: Normal. IMPRESSION: Mild degenerative changes of the left knee and right hip. . No significant leg length discrepancy. DATA REPOSITORY: RADIATION DOSE DELIVERED:
--- NOTE | 2024-10-24 14:30 | DI.RAD_ITS ---
Exam(s) XR KNEE LT 3V AP,LAT,SAUL EXAM: XR KNEE LT 3V AP,LAT,SAUL CLINICAL HISTORY: L knee pain. TECHNIQUE: 2D digital imaging was performed. Three views. COMPARISON: No exams were available for comparison FINDINGS: BONES: No acute fracture is present. No bony destructive lesion is seen. JOINTS: The knee is normally aligned. No joint effusion is seen. Minimal periarticular spurring. SOFT TISSUE: Normal vascular calcifications. IMPRESSION: Minimal degenerative changes. DATA REPOSITORY: RADIATION DOSE DELIVERED:
== END 2024-10-24 15:03 | disposition home or self-care (01) ==
LOC: DIORS 15:03
PROVIDERS: PCP Family Medicine; Referring Provider Family Medicine; Visit Provider Physician Assistant
DX: M25.562 Pain in left knee (principal)
CPT/HCPCS: 73562; 77073

== ENCOUNTER 2024-10-31 13:42 | Outpatient (CLI) | payer MEDICAID, SELFPAY ==
--- NOTE | 2024-10-31 09:00 | DI.MRI_ITS ---
Exam(s) MR LOWER JOINT LT WO EXAM: MR LOWER JOINT LT WO CLINICAL HISTORY: PAIN, INTERNAL DERANGEMENT LT KNEE, M23.92. TECHNIQUE: Multiplanar multisequence MRI was performed. COMPARISON: CR XR KNEE LT 3V AP,LAT,SAUL from 10/24/2024 FINDINGS: BONES: There is no fracture or contusion pattern. JOINTS: A small joint effusion is present. Articular cartilage: Patellofemoral joint: Articular cartilage is unremarkable. Medial femoral tibial joint: Articular cartilage is unremarkable. Lateral femoral tibial joint: Articular cartilage is unremarkable. LIGAMENTS/TENDONS: Anterior Cruciate: Full-thickness ACL tear Posterior Cruciate: Unremarkable. Medial Collateral:Unremarkable. Lateral Collateral ligament complex: Unremarkable. Extensor mechanism: Unremarkable. Medial retinaculum: Unremarkable. Lateral retinaculum: Unremarkable. Popliteus: Unremarkable. MENISCI: The medial meniscus shows a longitudinal tear in the body. There is some edema in the posterior root but no discrete tear. There is small horizontal tear in the anterior horn of the medial meniscus. The lateral meniscus is unremarkable. MUSCLES: Unremarkable. SOFT TISSUES: Unremarkable. IMPRESSION: Full-thickness ACL tear. Longitudinal tear of the body of the medial meniscus. Edema in the root of the posterior horn. Hori zontal tear in the anterior horn. DATA REPOSITORY:
== END 2024-10-31 14:02 ==
LOC: DI 13:43
PROVIDERS: PCP Family Medicine; Visit Provider Student in an Organized Health Care Education/Training Program
DX: S83.512A Sprain of anterior cruciate ligament of left knee, initial encounter (principal); X58.XXXA Exposure to other specified factors, initial encounter
CPT/HCPCS: 73721

== ENCOUNTER 2024-12-14 12:08 | Day surgery (SDC) | payer MEDICAID, SELFPAY ==
[2024-12-14] VITALS (21 sets, daily range): BP systolic 89–143; BP diastolic 56–92; PULSE 65–78; RESP 10–23; TEMP 36.3–36.7; O2SAT 93–97; BMI 32.0
[2024-12-14] MEDS: Celecoxib 200 MG CAP 400 MG PO (12:33)
[2024-12-14] MEDS: Acetaminophen 500 MG TAB 1000 MG PO (12:33)
[2024-12-14] MEDS: Lactated Ringers 1,000 ML 80 ML IV (12:47)
--- NOTE | 2024-12-14 12:56 | ANES.PREOP_ITS ---
General Info Date of Service Date Performed: 12/14/24 Height: 5 ft 10 in Weight: 101.2 kg Body Mass Index (BMI): 32.0 Surgical Procedure: Operation Date: 12/14/24 13:55 Proposed Procedure Side Surgeon p Knee Arthroscopy, Partial medial Meniscectomy Left Paolo Bravo MD Meds Allergies and Home Medications Allergies Allergy/AdvReac Type Severity Reaction Status Date / Time lisinopril Allergy Unknown Other (See Verified 12/14/24 12:18 Comment) Home Medication ?Medication ?Instructions ?Recorded aspirin 81 mg tablet,delayed 81 mg PO DAILY 07/26/24 release hydrochlorothiazide 25 mg tablet 25 mg PO DAILY #90 tabs 08/08/24 valsartan 40 mg tablet 40 mg PO DAILY #90 tabs 08/29/24 budesonide-formoterol HFA 160 2 puff inhalation BID #10.2 grams 09/09/24 mcg-4.5 mcg/actuation aerosol inhaler (Breyna) cyanocobalamin (vitamin B-12) 1,000 mcg PO DAILY #90 caps 09/15/24 1,000 mcg capsule rosuvastatin 20 mg tablet 20 mg PO DAILY #90 tabs 10/10/24 albuterol sulfate 90 mcg/actuation 2 puff inhalation Q6H PRN 10/25/24 aerosol inhaler shortness of breath or wheezing #8.5 grams metoprolol tartrate 25 mg tablet 12.5 mg (1/2 x 25 mg) PO BID #180 10/25/24 tabs acetaminophen 500 mg tablet 500 mg PO TID #90 tabs 12/14/24 hydrocodone 5 mg-acetaminophen 325 1 tab PO Q6H PRN pain #6 tabs 12/14/24 mg tablet ibuprofen 600 mg tablet 600 mg PO TID PRN pain #90 tabs 12/14/24 Current Visit Medications: Current Medications Generic Name Dose Route Start Last Admin Trade Name Freq PRN Reason Stop Dose Admin Acetaminophen 1,000 mg 12/14/24 06:00 12/14/24 12:33 Acetaminophen 500 Mg Tab PO 01/07/25 23:59 1,000 mg PREOP SHANICE Administration Celecoxib 400 mg 12/14/24 06:00 12/14/24 12:33 Celecoxib 200 Mg Cap PO 01/07/25 23:59 400 mg PREOP SHANICE Administration Ringer's Solution 1,000 mls @ 80 mls/hr 12/14/24 06:00 12/14/24 12:47 IV 01/07/25 23:59 80 mls/hr INFUSION SHANICE Administration Cefazolin Sodium/Dextrose 2 gm in 50 mls @ 100 mls/hr 12/14/24 06:00 Ancef Duplex IVPB 01/07/25 23:59 PREOP SHANICE Tranexamic Acid/Sodium Chloride 1,000 mg in 100 mls @ 600 mls/hr 12/14/24 06:00 IVPB 01/07/25 23:59 PREOP SHANICE IV Miscellaneous Supplies 1 each 12/14/24 06:00 Iv Access IV 01/07/25 23:59 DIRECTED SHANICE Sodium Chloride 0 ml 12/14/24 06:00 Normal Saline Flush 10 Ml Syr IV 01/07/25 23:59 PRN PRN Sodium Chloride 0 ml 12/14/24 06:00 Normal Saline 10 Ml Vial IJ 01/07/25 23:59 DIRECTED PRN Sterile Water 0 ml 12/14/24 06:00 Water,Injection,Sterile 10 Ml Vial IJ 01/07/25 23:59 DIRECTED PRN PFSH Active Problems Active Problems: Problem Status Onset Code Bilateral hand numbness Acute R20.0 Numbness in feet Acute R20.0 Tinnitus Acute H93.19 Old complete tear of anterior cruciate ligament of left knee Acute M23.52 Tear of medial meniscus of left knee Acute S83.242A Chronic rhinitis Chronic 11/01/24 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.0 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/24 H90.6 Internal derangement of left knee Acute M23.92 Cervical spinal cord compression Acute G95.20 Cubital tunnel syndrome of both upper extremities Acute G56.23 Cervicalgia Acute M54.2 Peripheral neuropathy Acute G62.9 Current smoker Acute F17.200 Otosclerosis of right ear Acute H80.91 Mixed hyperlipidemia Acute E78.2 Disorder of artery Acute I77.9 Hyperlipidemia Acute E78.5 Neurogenic claudication Acute R29.818 Bilateral knee pain Acute M25.561, M25.562 Arthritis of left hip Acute M16.12 Prediabetes Acute R73.03 Chronic obstructive lung disease Chronic J44.9 Metabolic syndrome X Acute E88.810 Atherosclerosis of aorta Acute I70.0 Carotid artery occlusion Acute I65.29 Aneurysm of thoracic aorta Acute I71.20 Abdominal aortic aneurysm Acute I71.40 JOEY (obstructive sleep apnea) Chronic G47.33 HTN (hypertension) Chronic I10 Medical History Medical History (Updated 12/14/24 @ 13:07 by Maritza Echeverria RN) History of alcohol use disorder Surgical History Surgical History (Updated 12/14/24 @ 13:07 by Maritza Echeverria RN) History of hip surgery (12/18/22) [facility] Tobacco Smoking/Tobacco Use Status: Current every day Tobacco Type: cigarettes Passive smoking exposure: Yes Second hand exposure: No Alcohol Alcohol Intake: former Substance Use Substance use: Current Sobriety Substance use type: does not use Vital Signs and Lab Results Vital Signs Most Recent Vital Signs in EMR: Most Recent Vital Signs Temp Pulse Resp BP Pulse Ox 36.3 C L 65 18 123/81 97 12/14/24 12:10 12/14/24 12:10 12/14/24 12:10 12/14/24 12:10 12/14/24 12:10 Lab Results Blood Type / Crossmatch: 2 No Data to Display Complete Blood Count: 2 No Data to Display Complete Metabolic Panel: 2 No Data to Display Liver Function Panel: 2 No Data to Display Coagulation Panel: 2 No Data to Display Cardiac Panel: 2 No Data to Display Arterial Blood Gas: 2 No Data to Display Venous Blood Gas: 2 No Data to Display Pancreas Panel: 2 No Data to Display Thyroid Panel: 2 No Data to Display Infectious Disease: 2 No Data to Display Blood Cultures: 2 No Data to Display Toxicology Panel: 2 No Data to Display Imaging and Studies Imaging and Studies Study information below may be from another EMR and interpreted by another provider. Please see original notes in EMR for more complete details. EKG Summary: EKG PATIENT NAME: Neel Mello UNIT #: [id number] ORDERING PROVIDER: Cullen Weiss M.D. PRIMARY CARE PROVIDER: Ida Auguste DATE/TIME OF SERVICE: 05/18/24903 : 1965 PERFORMING LOCATION: ICU APPROVED REPORT Exam: Resting ECG Reason for Exam: Detox Patient Location: E HR:124 bpm ECG Measurements Heart Rate 124 AXIS LA 136 P 35 QRSd 84 QRS -41 QT 317 T3 QTc 456 Conclusion Sinus tachycardia...rate> 99 Probable left atrial enlargement...P >50mS, <-0.10mV V1 Inferior infarct, old...Q >35mS, II III aVF Sinus tachycardia left axis normal intervals no acute ischemic changes - <Electronically signed by Cullen Weiss M.D. in [place]> E-Sign Date: 05/18/24 E-Sign Time: 1717 ADDENDUM APPROVED REPORT Exam: Resting ECG Reason for Exam: Detox Patient Location: E HR:124 bpm ECG Measurements Heart Rate 124 AXIS LA 136 P 35 QRSd 84 QRS -41 QT 317 T3 QTc 456 Conclusion Sinus tachycardia...rate> 99 Probable left atrial enlargement...P >50mS, <-0.10mV V1 Inferior infarct, old...Q >35mS, II III aVF Sinus tachycardia left axis normal intervals no acute ischemic changes I have reviewed and I agree with the emergency room physician's ECG interpretation. Electronically signed by: <Electronically signed by Concepcion Peace M.D. in [place]> 05/19/24 0819 Cosigned by: Anesthesia Assessment and Plan Anesthesia History Personal History: No History of Anesthesia Complications Family History: No Family History of Anesthesia Complications Exercise Tolerance Exercise Tolerance: Metabolic Equivalents>4 Pertinent Negatives Pertinent Negatives: No Symptoms of GERD and No Major Cardiovascular Symptoms or Complaints Cardiac & Pulmonary Exam Cardiac Exam: Normal S1/S2 Heart Sounds Pulmonary Exam: Clear Bilateral Breath Sounds Implantable Cardiac Device Does patient have a Pacemaker or an ICD?: No Airway Exam Known Difficult Airway: No Mallampati Class: 2 Mouth Opening: Normal (> 3cm) Thyromental Distance: Greater than 3 cm Neck Range of Motion: Limited ROM and Known Cervical Instability or radiculopathy Neck Circumference: Normal Teeth Condition: Normal Dentition Tooth Numberin 1. Left sided cracked tooth per patient, uncertain if upper or lower ASA Classification ASA Score: ASA 3 Emergency Case?: No NPO Status NPO Status: NPO Clears >2 hours, Solids >8 hours Anesthesia Plan Resuscitation Status: Full Code Anesthesia Technique: General Anesthesia Airway Planned: LMA Monitors Used: Standard Monitors Preoperative Comments:: [place] left better than right. Patient with 3.4cm TAA, monitoring yearly. Patient with known cervical radiculopathy. To keep neutral and inline.
--- NOTE | 2024-12-14 12:58 | PDOC.DSDIS_ITS ---
Date of service: 12/14/24 Discharge Plan Disposition Patient Disposition: Home Condition: Good Discharge Details Reason For Visit: L knee arthroscopy Attending Provider: Paolo Bravo Primary Care Provider: Andre Mtz Home Meds and New Rx's Prescriptions: New hydrocodone-acetaminophen 5-325 mg tablet 1 tab PO Q6H PRN (Reason: pain) Qty: 6 0RF acetaminophen 500 mg tablet 500 mg PO TID Qty: 90 0RF ibuprofen 600 mg tablet 600 mg PO TID PRN (Reason: pain) Qty: 90 0RF Continued albuterol sulfate 90 mcg/actuation HFA aerosol inhaler 2 puff inhalation Q6H PRN (Reason: shortness of breath or wheezing) Qty: 8.5 3RF metoprolol tartrate 25 mg tablet 12.5 mg PO BID Qty: 180 3RF budesonide-formoterol [Breyna] 160-4.5 mcg/actuation HFA aerosol inhaler 2 puff INHALATION BID Qty: 10.2 6RF aspirin 81 mg tablet,delayed release (DR/EC) 81 mg PO DAILY hydrochlorothiazide 25 mg tablet 25 mg PO DAILY Qty: 90 3RF valsartan 40 mg tablet 40 mg PO DAILY Qty: 90 3RF cyanocobalamin (vitamin B-12) 1,000 mcg capsule 1,000 mcg PO DAILY Qty: 90 3RF rosuvastatin 20 mg tablet 20 mg PO DAILY Qty: 90 3RF Discharge Instructions Stand Alone Forms: Shelly Knee Arthroscopy Referrals: Paolo Bravo MD [ [facility] STAFF PHYSICIAN] - Equipment/Supplies: Partial Weight Bearing Crutches Activity:: Activity as Tolerated Remove Dressings/Wound Care:: 72 hours Shower/Bathe:: 72 hours Diet:: As Tolerated Discharge Orders Discharge Orders: Discharge Order (Routine); Ordered 12/14/24 Ordered By: Scotty Stovall DS: Diagnosis Discharge Diagnosis (1) Tear of medial meniscus of left knee: Status: Acute
[2024-12-14] MEDS: ceFAZolin 2 GM/50 ML BAG IVPB (13:43)
[2024-12-14] MEDS: TRANEXAMIC ACID/SOD. CHL. 1,000 MG/100 ML BAG 600 MG IVPB (13:48)
[2024-12-14] MEDS: EPINEPHrine 10 MG/10 ML ML (14:04)
[2024-12-14] MEDS: Bupivacaine 0.25% Pres-Free 30 ML VIAL (14:04)
--- NOTE | 2024-12-14 14:54 | ROE_ITS ---
Operative Note Operative Note PRE-OP DIAGNOSIS: Left Knee Medial Meniscus Tear POST-OP DIAGNOSIS: same PROCEDURE: Arthroscopic partial medial meniscectomy, left knee SURGEON: Paolo Bravo Refer to Anesthesia Record ESTIMATED BLOOD LOSS: 0 PATHOLOGY: none sent COMPLICATIONS: None Patient was transported to: PACU Patient's condition: stable Indications: I have seen Osvaldo in clinic for symptoms of a meniscus tear. This was confirmed based on MRI and exam findings. Nonoperative measures were exhausted but disability and pain persisted. I discussed knee arthroscopy with meniscal intervention with the patient. I reviewed the risks of the procedure to include, but not limited to, bleeding, infection, pain, stiffness, damage to nerves or vessels, recurrence, blood clot. Despite these risks, the patient elected to proceed. 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 The consent was reviewed with the patient and signed. The history and physical was updated. All questions were answered. He was taken back to the operating room. The patient was placed into the supine position on the operating room table. A nonsterile tourniquet was placed high onto the leg but not used. All bony prominences were well padded. Prophylactic antibiotics in the form of Cefazolin were administered. The left leg was then prepped with Chloraprep and draped in a standard fashion with stockinette and extremity drape. A timeout to confirm correct identity, side and site, procedure, allergies, anesthesia, and medical concerns was performed. A standard lateral portal was made at the lateral border of the patella tendon in line with the inferior pole of the patella, soft spot. The skin and deep tissue was incised sharply and the blunt trochar was inserted atraumatically. A diagnostic arthroscopy was performed and the findings are listed above. The suprapatellar pouch had no significant inflammatory change. The patellofemoral articulation showed Grade I chondromalacia as well as good tracking. The lateral gutter had no loose bodies and the medial gutter had no loose bodies. The knee was brought into some valgus stress in extension to open the medial compartment. A medial portal was made, localized by a spinal needle. The portal was created with an #11 blade through skin and capsule under direct visualization avoiding any meniscal injury. A probe was then inserted into the medial compartment. The medial compartment was fully inspected. The chondral surface of the tibia showed Grade I chondromalacia and the surface of the femur showed Grade II chondromalacia. The medial meniscus had a complex meniscal tear with the primary bucket-handle orientation. Utilizing a probe, I was able to displace the majority of the meniscus into the knee. Throughout this bucket- handle segment there also was horizontal tearing and some horizontal tearing which extended into the anterior horn and body. This bucket-handle configuration extend all the way to the posterior root. Using arelis and biters I was able to remove this meniscal material. It was quite soft indicating its chronicity. There is a small rim of meniscus left posteriorly but with little meniscus left except around the anterior horn. The notch was then inspected which showed a torn ACL with an empty wall sign and an intact PCL. The leg was then brought into a figure of 4 position. The lateral compartment was fully inspected with the arthroscope and a probe. The chondral surface of the lateral femur showed no significant chondromalacia. The chondral surface of the lateral tibia showed no significant chondromalacia. The lateral meniscus had no meniscal tear. The arthroscope was brought back into the suprapatellar pouch and the leg was in full extension. The knee was thoroughly irrigated with the arthroscopic fluid on high flow and pressure. Inflow was stopped and excess fluid was removed. The wounds were closed with 4-0 Nylon. They were dressed with Xeroform, 4x4 gauze, ABD pad, Kerlix and an EZEQUIEL wrap. A cryo-cuff was applied. The patient tolerated the procedure well and was returned to the Same Day Surgery area in a stable condition suffering no known complication. Date of Procedure: 12/14/24
--- NOTE | 2024-12-14 15:00 | W.ANESPOSTOP ---
Postoperative Evaluation Date, Time and Location Date Performed: 12/14/24 Time Performed: 15:00 Patient Location: PACU Vital Signs Most Recent Imported Vital Signs: Most Recent Vital Signs Temp Pulse Resp BP Pulse Ox 36.6 C 71 15 143/74 H 96 12/14/24 14:56 12/14/24 14:56 12/14/24 14:56 12/14/24 14:56 12/14/24 14:56 Pain Score Most Recent Pain Score: Most Recent Pain Score Pain Level 8 12/14/24 14:45 Assessment Mental Status: Awake (Alert & Oriented to Patient Baseline) Airway and Respiratory Function: Patent airway with normal (patient baseline) respiratory exam Cardiovascular Function: Hemodynamically Stable Hydration Status: Adequately Hydrated Nausea & Vomiting: No Nausea or Vomiting Pain: Pain is tolerable per patient Peripheral Nerve Block: Patient did not receive a nerve block
== END 2024-12-14 16:20 | disposition home or self-care (01) ==
PROVIDERS: PCP Family Medicine; Visit Provider Student in an Organized Health Care Education/Training Program
PROC: (CPT 29870; principal; 2024-12-14 13:45)
DX: S83.242A Other tear of medial meniscus, current injury, left knee, initial encounter (principal); E78.2 Mixed hyperlipidemia; R73.03 Prediabetes; G47.33 Obstructive sleep apnea (adult) (pediatric); X58.XXXA Exposure to other specified factors, initial encounter
CPT/HCPCS: 29881; J0665; J0690; J2003; J2250; J2704; J3010; J3475